=== PATIENT | male | born 1955 | race Caucasian/White ===

== ENCOUNTER 2020-03-26 14:23 | Inpatient (IN) | payer MEDICARE, MEDICAID ==
--- NOTE | 2020-03-26 15:27 | ED ---
Psych HPI - General Chief Complaint: Psychiatric Symptoms Stated Complaint: Mental Health Time Seen by Provider: 03/26/20 14:42 Source: patient Mode of arrival: ambulatory - History of Present Illness Initial Comments: this is a 62-year-old male with no prior history of depression who states she's been feeling depressed since his fiance on January 25 of this year apparently they had an ongoing relationship for 40 years. He has had thoughts of wanting to and suicidal thoughts but no particular plan. He denies any drugs or alcohol no fevers chills nausea vomiting sweats no other complaints of any medical issues. He is here seeking help at the behest of multiple family members and friends Complaint: suicidal ideation, feels depressed - Related Data Home Medications Medication Instructions Recorded Confirmed Insulin Glargine,Hum.rec.anlog 30 - 50 unit SQ HS 03/26/20 03/26/20 [Lantus Solostar] Omeprazole 20 mg PO DAILY 03/26/20 03/26/20 metFORMIN HCL [Glucophage] 1,000 mg PO BID 03/26/20 03/26/20 traMADol HCL 50 mg PO BID 03/26/20 03/26/20 Allergies Allergy/AdvReac Type Severity Reaction Status Date / Time No Known Allergies Allergy Verified 03/26/20 16:02 Review of Systems ROS Statement: Those systems with pertinent positive or pertinent negative responses have been documented in the HPI. ROS Other: All systems not noted in ROS Statement are negative. Past Medical History Past Medical History: No Reported History Past Surgical History: No Surgical Hx Reported Smoking Status: Never smoker Past Alcohol Use History: None Reported Past Drug Use History: None Reported General Exam - General Exam Comments Initial Comments: this is a well-developed well-nourished awake alert oriented 3 male he is tearful during the interview Limitations: no limitations General appearance: alert Head exam: Present: atraumatic, normocephalic, normal inspection Eye exam: Present: normal appearance, PERRL, EOMI. Absent: scleral icterus, conjunctival injection, periorbital swelling ENT exam: Present: normal exam, mucous membranes moist Neck exam: Present: normal inspection. Absent: tenderness, meningismus, lymphadenopathy Respiratory exam: Present: normal lung sounds bilaterally. Absent: respiratory distress, wheezes, rales, rhonchi, stridor Cardiovascular Exam: Present: normal rhythm, tachycardia, normal heart sounds. Absent: systolic murmur, diastolic murmur, rubs, gallop, clicks GI/Abdominal exam: Present: soft, normal bowel sounds. Absent: distended, tenderness, guarding, rebound, rigid Extremities exam: Present: normal inspection, full ROM, normal capillary refill. Absent: tenderness, pedal edema, joint swelling, calf tenderness Back exam: Present: normal inspection Neurological exam: Present: alert, oriented X3, CN II-XII intact Psychiatric exam: Present: depressed, suicidal ideation Skin exam: Present: warm, dry, intact, normal color. Absent: rash Course Vital Signs 03/26/20 03/26/20 14:35 19:56 Temperature 98.3 F 97.9 F Pulse Rate 108 H 100 Respiratory 18 18 Rate Blood Pressure 149/101 118/95 O2 Sat by Pulse 98 96 Oximetry Medical Decision Making - Medical Decision Making the patient was evaluated by the psychiatric service and found to be a risk to himself. He will be admitted he did require a petition and certification which I did call to certification. He will be admitted for inpatient treatment. Disposition Clinical Impression: Depression, Suicidal ideation Disposition: TRANSFER TO PSYCH HOSP/UNIT Condition: Fair
[2020-03-26] MEDS ORDERED: traMADol 50 MG TAB PO PRN (19:45)
[2020-03-26] MEDS ORDERED: ZIPRASIDONE 20 MG VIAL IM PRN (19:49)
[2020-03-26] MEDS ORDERED: ACETAMINOPHEN TAB 325 MG TAB PO PRN (19:49)
[2020-03-26] MEDS ORDERED: LORazepam 1 MG TAB PO PRN (19:49)
[2020-03-26] MEDS ORDERED: MAGNESIUM HYDROXIDE 2,400 MG/10 ML CUP PO PRN (19:49)
[2020-03-26] MEDS ORDERED: MAG HYDROX/AL HYDROX/SIMETH 30 ML CUP PO PRN (19:49)
[2020-03-26] MEDS ORDERED: LORazepam 2 MG/ML INJ IM PRN (19:53)
[2020-03-26] MEDS ORDERED: NON FORMULARY DRUG (Insulin Glargine,Hum.Rec.Anlog [Lantus Solostar] 100 UNIT/ML Insuln.Pe SQ SCH (21:00)
[2020-03-26] MEDS ORDERED: metFORMIN 500 MG TAB PO SCH (21:00)
[2020-03-26] MEDS: INSULIN ASPART (NovoLOG) 100 UNIT/ML VIAL SQ SCH (21:17)
[2020-03-26 21:21] LABS: Glucose,Whole Blood 398 mg/dL (75-99)
[2020-03-26] MEDS ORDERED: INSULIN DETEMIR (LEVEMIR) 100 UNIT/ML SYR SQ SCH (22:00)
[2020-03-27 07:23] LABS: Basophils # (A) 0.1 k/uL (0-0.2); Basophils % (A) 1 %; Eosinophils # (A) 0.2 k/uL (0-0.7); Eosinophils % (A) 2 %; HCT 50.3 % (39.0-53.0); HGB 16.5 gm/dL (13.0-17.5); Lymphocytes % (A) 27 %; MCH 30.3 pg (25.0-35.0); MCHC 32.9 g/dL (31.0-37.0); MCV 92.1 fL (80.0-100.0); Mean Platelet Volume 7.5; Monocytes # (A) 0.4 k/uL (0-1.0); Monocytes % (A) 6 %; Neutrophils # (A) 4.6 k/uL (1.3-7.7); Neutrophils % (A) 62 %; Platelet Count 219 k/uL (150-450); RBC 5.46 m/uL (4.30-5.90); RDW 13.2 % (11.5-15.5); WBC 7.3 k/uL (3.8-10.6)
[2020-03-27 07:35] LABS: ALT 15 U/L (4-49); AST 23 U/L (17-59); African American GFR (CKD) >90 (>60 ml/min/1.73 sqM); Albumin 4.5 g/dL (3.5-5.0); Alkaline Phosphatase 93 U/L (38-126); Anion Gap 10 mmol/L; Blood Urea Nitrogen 18 mg/dL (9-20); Calcium 9.8 mg/dL (8.4-10.2); Carbon Dioxide 26 mmol/L (22-30); Chloride 100 mmol/L (98-107); Cholesterol 283 mg/dL (<200); Glucose 366 mg/dL (74-99); HDL Cholesterol 43 mg/dL (40-60); LDL Cholesterol,Calculated 173 mg/dL (0-99); Non-African American GFR(CKD) >90 (>60 ml/min/1.73 sqM); Potassium 4.5 mmol/L (3.5-5.1); Sodium 136 mmol/L (137-145); Total Bilirubin 0.9 mg/dL (0.2-1.3); Total Protein 7.7 g/dL (6.3-8.2); Triglycerides 336 mg/dL (<150)
[2020-03-27] MEDS: INSULIN ASPART (NovoLOG) 100 UNIT/ML VIAL SQ SCH ×4 (08:10→21:05)
[2020-03-27] MEDS: PANTOPRAZOLE 40 MG TABLET PO SCH (08:10)
[2020-03-27 08:18] LABS: Glucose,Whole Blood 388 mg/dL (75-99)
--- NOTE | 2020-03-27 11:30 | P.HP ---
Psychiatric H&P - . H&P Date: 03/27/20 History & Physical: Allergies Allergy/AdvReac Type Severity Reaction Status Date / Time No Known Allergies Allergy Verified 03/26/20 20:58 Vital Signs Temp 97.9 F 03/27/20 01:39 Pulse 86 03/27/20 01:39 Resp 15 03/27/20 01:39 BP 141/93 03/27/20 01:39 Pulse Ox 96 03/26/20 20:50 Intake & Output 03/26/20 03/27/20 03/27/20 18:59 06:59 18:59 Weight 97.976 kg 98.43 kg Laboratory Last Values WBC 7.3 k/uL (3.8-10.6) 03/27/20 06:55 RBC 5.46 m/uL (4.30-5.90) 03/27/20 06:55 Hgb 16.5 gm/dL (13.0-17.5) 03/27/20 06:55 Hct 50.3 % (39.0-53.0) 03/27/20 06:55 MCV 92.1 fL (80.0-100.0) 03/27/20 06:55 MCH 30.3 pg (25.0-35.0) 03/27/20 06:55 MCHC 32.9 g/dL (31.0-37.0) 03/27/20 06:55 RDW 13.2 % (11.5-15.5) 03/27/20 06:55 Plt Count 219 k/uL (150-450) 03/27/20 06:55 Neutrophils % 62 % 03/27/20 06:55 Lymphocytes % 27 % 03/27/20 06:55 Monocytes % 6 % 03/27/20 06:55 Eosinophils % 2 % 03/27/20 06:55 Basophils % 1 % 03/27/20 06:55 Neutrophils # 4.6 k/uL (1.3-7.7) 03/27/20 06:55 Lymphocytes # 2.0 k/uL (1.0-4.8) 03/27/20 06:55 Monocytes # 0.4 k/uL (0-1.0) 03/27/20 06:55 Eosinophils # 0.2 k/uL (0-0.7) 03/27/20 06:55 Basophils # 0.1 k/uL (0-0.2) 03/27/20 06:55 Sodium 136 mmol/L (137-145) L 03/27/20 06:55 Potassium 4.5 mmol/L (3.5-5.1) 03/27/20 06:55 Chloride 100 mmol/L (98-107) 03/27/20 06:55 Carbon Dioxide 26 mmol/L (22-30) 03/27/20 06:55 Anion Gap 10 mmol/L 03/27/20 06:55 BUN 18 mg/dL (9-20) 03/27/20 06:55 Creatinine 0.68 mg/dL (0.66-1.25) 03/27/20 06:55 Est GFR (CKD-EPI)AfAm >90 (>60 ml/min/1.73 sqM) 03/27/20 06:55 Est GFR (CKD-EPI)NonAf >90 (>60 ml/min/1.73 sqM) 03/27/20 06:55 Glucose 366 mg/dL (74-99) H 03/27/20 06:55 POC Glucose (mg/dL) 388 mg/dL (75-99) H 03/27/20 08:05 POC Glu Immigration Manager ID Aly Houser 03/27/20 08:05 Calcium 9.8 mg/dL (8.4-10.2) 03/27/20 06:55 Total Bilirubin 0.9 mg/dL (0.2-1.3) 03/27/20 06:55 AST 23 U/L (17-59) 03/27/20 06:55 ALT 15 U/L (4-49) 03/27/20 06:55 Alkaline Phosphatase 93 U/L (38-126) 03/27/20 06:55 Total Protein 7.7 g/dL (6.3-8.2) 03/27/20 06:55 Albumin 4.5 g/dL (3.5-5.0) 03/27/20 06:55 Triglycerides 336 mg/dL (<150) H 03/27/20 06:55 Cholesterol 283 mg/dL (<200) H 03/27/20 06:55 LDL Cholesterol, Calc 173 mg/dL (0-99) H 03/27/20 06:55 HDL Cholesterol 43 mg/dL (40-60) 03/27/20 06:55 TSH 1.950 mIU/L (0.465-4.680) 03/27/20 06:55 03/27/20 11:22 IDENTIFYING DATA: Patient is a 64-year-old male who currently lives with his brother in a house has 5 kids 8 grandkids and collects Social Security and is . HPI: Patient presented to the hospital who presented to the ER with suicidal thoughts and depression. Patient was brought in by the police and according to ER report and petition patient had increasing depression and suicidal thoughts since his fiance had in early January and was feeling unsafe at home. Patient was admitted involuntarily to the mental health unit today. Patient denied any previous history of psychiatric admissions or being on any psychiatric medications in the past. He states that he was having "weird thoughts" staying at home alone and claims that he mentioned to a [employer] worker who called him on his phone while he was visiting his sister in the area to ask him about his symptoms and patient states that he mentioned thoughts of suicide and claims that "she called the grinder set up operator external on me and brought me to the hospital". He states that "I was joking around" and minimized most of his symptoms and was fairly guarded/evasive. He was tearful at times and perseverating on discharge. Patient had poor insight and judgment. He minimized his depression and claims that "I just play with my cats and I'm okay". He claims that he has been dealing with suicidal thoughts and grief over his fiance who they have been together 40 years. He states that he has been feeling irritable and anxious at times. He denied any access to guns at home. He states that his sleep has been "on and off" mentions that he has decrease in concentration and appetite. He states that he has been crying a lot at home. He claims that his fianc overdosed on Tylenol and he wasn't allowed to see her and states that "I've had to deal with that for so long now". He endorsed guilt. Patient denies any suicidal or homicidal ideations intent or plan. At this time patient denies any auditory or visual hallucinations. Patient denies any flight of ideas racing thoughts and increased in goal directed behavior. Patient admits to using no recreational drugs or cigarettes or alcohol. PAST PSYCHIATRIC HISTORY: Patient states that he does not have any psychiatric history. Patient denies being on any psychiatric medications. Patient denies any previous psychiatric hospitalizations. Patient denies any psychiatric outpatient follow-up. Patient denies any history of suicide attempts in the past. PMH: Diabetes, GERD, lower back pain ALLERGIES: as per EMR CHEMICAL DEPENDENCY HISTORY: as per HPI FAMILY PSYCHIATRIC/SUBSTANCE USE HISTORY: denies SOCIAL HISTORY: Patient was born and raised in to [place] [facility] and currently lives in [place] with his brother in a house. He states that he has 5 kids and 8 grandchildren. He states that he collects Social Security at this time. Patient is . 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 He denies any legal or history. MENTAL STATUS EXAM: General Appearance: Patient appears to be older than stated age is alert, guarded/evasive, argumentative. Patient appears to have poor hygiene and grooming. Behavior: Patient is seated without any agitated behavior. Argumentative and guarded. Speech: Patient's speech is fluent and nonpressured. Mood/Affect: Patient reports their mood is [depressed and anxious], affect is congruent and tearful at times Suicidality/Homicidality: Patient denies having any homicidal ideation intent or plan. [Denies any suicidal ideations intent or plan] Perceptions: Patient denies any visual hallucinations [and denies any auditory hallucinations] Though content/process: There is no evidence of any delusional thought content and thought process is linear and goal-directed. Perseverates on discharge. Minimizing his symptoms and rationalizing. Significant denial. Memory and concentration: AOX3, grossly intact for the purposes of this session. Can spell "WORLD" backwards Judgment and insight: [poor] STRENGTHS/WEAKNESSES: strength is that patient is [resilient]. Weakness is that patient [has poor judgment and insight] INTELLECT: [average] IMPRESSIONS: Major depressive disorder, without psychotic features PLAN: -Patient is admitted under [voluntary] status to MHU for stabilization of psychiatric symptoms and safety. Patient has signed [adult voluntary form and] medication consent and is placed in patient's chart. -Medications : Will start patient on Cymbalta 30 mg daily for mood/anxiety/pain. Started on melatonin 5 mg daily at bedtime for insomnia. -Ativan [and Geodon] PRN for agitation/aggression -Patient was informed of the risks, benefits and side effects of the medication and patient verbally consented to taking the medications. Patient signed med consent form and was placed in chart. -Internal Medicine consult to perform medical evaluation and physical. -NRT - not needed as patient does not smoke. -SW on board for discharge planning. Encourage patient to participate in groups to work on coping skills. Patient will need to have a safe discharge plan prior to being released from the hospital. 03/27/20 11:22
[2020-03-27] MEDS: DULoxetine HCL 30 MG CAPSULE.DR PO SCH (12:04)
[2020-03-27 13:11] LABS: Glucose,Whole Blood 378 mg/dL (75-99)
[2020-03-27] MEDS ORDERED: INSULIN DETEMIR (LEVEMIR) 100 UNIT/ML SYR SQ STA (13:52)
[2020-03-27 17:40] LABS: Glucose,Whole Blood 322 mg/dL (75-99)
[2020-03-27 17:47] LABS: Hemoglobin A1C 13.9 % (4.0-6.0)
[2020-03-27 19:57] LABS: Glucose,Whole Blood 312 mg/dL (75-99)
[2020-03-27] MEDS: MELATONIN 5 MG TABLET PO SCH (21:04)
[2020-03-27] MEDS: INSULIN DETEMIR (LEVEMIR) 100 UNIT/ML SYR SQ SCH (21:05)
--- NOTE | 2020-03-28 00:18 | P.MDCNMH ---
History of Present Illness H&P Date: 03/27/20 Chief Complaint: hyperglycemia 64 year old male with DM on insulin patient comes in due to overwhelming depression with suicidal ideation , he denies any mental health problems in the past, however since his fiance's in january , he has not gotten over it , and feels very depressed and suicidal at times, but denies any suicide plans. patient denies any medical concerns otherwise. however, his blood sugar is running high, he declined insulin last night. otherwise , he denies any fever, chills, chest pain , trouble breathing, GI symptoms, URI. Review of Systems Pertinent positives as noted in HPI. All other systems were reviewed and are negative Past Medical History Past Medical History: No Reported History History of Any Multi-Drug Resistant Organisms: None Reported Past Surgical History: No Surgical Hx Reported Smoking Status: Never smoker Past Alcohol Use History: None Reported Past Drug Use History: None Reported Medications and Allergies Home Medications Medication Instructions Recorded Confirmed Type Insulin Glargine,Hum.rec.anlog 30 - 50 unit SQ HS 03/26/20 03/26/20 History [Lantus Solostar] Omeprazole 20 mg PO DAILY 03/26/20 03/26/20 History metFORMIN HCL [Glucophage] 1,000 mg PO BID 03/26/20 03/26/20 History traMADol HCL 50 mg PO BID 03/26/20 03/26/20 History Allergies Allergy/AdvReac Type Severity Reaction Status Date / Time No Known Allergies Allergy Verified 03/26/20 20:58 Physical Exam Vitals: Vital Signs Temp Pulse Resp BP 03/27/20 17:49 98.3 F 03/27/20 12:15 98.9 F 03/27/20 01:39 97.9 F 86 15 141/93 Constitutional: No acute distress, conversant, pleasant Eyes: Anicteric sclerae, moist conjunctiva, Pupils equal round reactive to light ENMT: NC/AT Oropharynx clear, no erythema, or exudates Neck: Supple, FROM, no masses, or JVD No carotid bruits No thyromegaly Lungs: Clear to auscultation Clear to percussion Normal respiratory effort, no accessory muscle use Cardiovascular: Heart regular in rate and rhythm, No murmurs, gallops, or rubs No peripheral edema Abdominal: Soft Nontender, no guarding, rebound or rigidity Abdomen moving with respiration Normoactive bowel sounds No hepatomegaly, No splenomegaly No palpable mass No abdominal wall hernia noted Skin: Normal temperature, tone, texture, turgor No induration No subcutaneous nodules No rash, lesions No ulcers Extremities: No digital cyanosis No clubbing Pedal pulses intact and symmetrical Radial pulses intact and symmetrical No calf tenderness Psychiatric: Alert and oriented to person, place and time depressed affect fair judgement Neuro Muscles Strength 5/5 in all 4 extremities Sensation to light touch grossly present throughout Cranial nerves II-XII grossly intact No focal sensory deficits Lymphatics: no palpable cervical or supraclavicular , or inguinal lymph nodes Cranial Nerve Examination - Cranial Nerves Cranial Nerve II- Optic: Intact Cranial Nerve III- Oculomotor: Intact Cranial Nerve IV- Trochlear: Intact Cranial Nerve V- Trigeminal: Intact Cranial Nerve - Abducens: Intact Cranial Nerve VII- Facial: Intact Cranial Nerve VIII- Auditory: Intact Cranial Nerve IX- Glossopharyngeal: Intact Cranial Nerve X- Vagus: Intact Cranial Nerve XI- Accessory: Intact Cranial Nerve XII- Hypoglossal: Intact Results CBC & Chem 7: 03/27/20 06:55 03/27/20 06:55 Labs: Abnormal Lab Results - Last 24 Hours (Table) 03/27/20 03/27/20 03/27/20 Range/Units 06:55 06:55 08:05 Sodium 136 L (137-145) mmol/L Glucose 366 H (74-99) mg/dL POC Glucose (mg/dL) 388 H (75-99) mg/dL Hemoglobin A1c 13.9 H (4.0-6.0) % Triglycerides 336 H (<150) mg/dL Cholesterol 283 H (<200) mg/dL LDL Cholesterol, Calc 173 H (0-99) mg/dL 03/27/20 03/27/20 03/27/20 Range/Units 13:00 17:38 19:55 Sodium (137-145) mmol/L Glucose (74-99) mg/dL POC Glucose (mg/dL) 378 H 322 H 312 H (75-99) mg/dL Hemoglobin A1c (4.0-6.0) % Triglycerides (<150) mg/dL Cholesterol (<200) mg/dL LDL Cholesterol, Calc (0-99) mg/dL Assessment and Plan Assessment: depression , suicidal ideation management per psych DM with hyperglycemia long acting insulin insulin sliding scale diabetic diet hyperlipidemia start statin Thank you for allowing us to participate in the care of this patient. We will follow peripherally. Do not hesitate to contact us with questions. Someone can be reached from the [facility] hospitalist group at all hours of the day at [phone].
[2020-03-28 07:44] LABS: Glucose,Whole Blood 140 mg/dL (75-99)
[2020-03-28] MEDS: INSULIN ASPART (NovoLOG) 100 UNIT/ML VIAL SQ SCH ×4 (08:01→20:09)
[2020-03-28] MEDS: DULoxetine HCL 30 MG CAPSULE.DR PO SCH (08:02)
[2020-03-28] MEDS: PANTOPRAZOLE 40 MG TABLET PO SCH (08:02)
[2020-03-28 12:40] LABS: Glucose,Whole Blood 272 mg/dL (75-99)
--- NOTE | 2020-03-28 13:24 | P.PN ---
Progress Note - Text Progress Note Date: 03/28/20 Interim history: I reviewed the medical record, interviewed the patient and discussed her treatment and treatment plan during team meeting. Patient was in cortes and agreed to follow me to office , he has been asking for discharge "I am missing my cats",talked about his GF who 01/2020 from u nintentionally OD of Tylenol ,he stated that he did need to talk to someone about her loss but "ALAYNA HEREDIA THOUGHT THAT I WAS SUICIDAL" ,stated that he does feel "MISERABLE"staying here "BECAUSE OF MY BABY "he is talking about his cats ,denies any hopeless or helpless feeling denies any suicidal or homicidal ideation,has been compliant with medications and denies any side-effect SLEPT:5 hours ,participating in groups ACCORDING TO GIOVANNA NOTE:((Met with pt to discuss dc plans further. He states he would like to return home to [place] as he has cats and friends down there. T/C to sister to discuss further. She states "we will try it until he is able to come up here." She confirmed he won't be alone, as his brother lives with him in [place]. She confirmed there are no guns in the home adding "I took care of that a long time ago". Tx team meeting held case discussed. Updated on the above. Will f/u as appropriate.)) [ End ] MENTAL STATUS EXAM: General Appearance: Patient appears to be stated age is alert, directable, and attempts to cooperate. Patient appears to have fair hygiene and grooming. Behavior: Patient is seated without any agitated behavior. Patient is appr opriately tearful. Speech: Patient's speech is fluent and nonpressured. Mood/Affect: Patient reports their mood is depressed, affect is congruent, tearful and constricted. Suicidality/Homicidality: Patient denies having any homicidal ideation intent or plan. Denies any suicidal ideations intent or plan Perceptions: Patient denies any visual hallucinations and denies any auditory hallucinations Though content/process: There is no evidence of any delusional thought content and thought process is linear and goal-directed. Memory and concentration: AOX3, grossly intact for the purposes of this session. Judgment and insight:fair ASSESSMENT:Major depression ,versus Adjustment disorder with depressed mood Plan: -Patient continues to meet criteria for inpatient psychiatric admission for symptom stabilization and safety. . Continue Cymbalta for mood ., Continue Continue Geodon 20 mg IM twice a day when necessary for agitation or aggression. Evaluate clinical status response to treatment on a daily basis. Encourage participation in therapeutic groups and activities.
[2020-03-28 16:12] VITALS: BMI 28.6
[2020-03-28 17:43] LABS: Glucose,Whole Blood 236 mg/dL (75-99)
[2020-03-28 19:58] LABS: Glucose,Whole Blood 272 mg/dL (75-99)
[2020-03-28] MEDS: INSULIN DETEMIR (LEVEMIR) 100 UNIT/ML SYR SQ SCH (20:09)
[2020-03-28] MEDS: MELATONIN 5 MG TABLET PO SCH (20:11)
[2020-03-28] MEDS ORDERED: ATORVASTATIN 20 MG TAB PO SCH (21:00)
[2020-03-29 06:43] VITALS: BP 134/85; PULSE 78; RESP 16; TEMP 98.1
[2020-03-29 07:46] LABS: Glucose,Whole Blood 124 mg/dL (75-99)
[2020-03-29] MEDS: INSULIN ASPART (NovoLOG) 100 UNIT/ML VIAL SQ SCH (07:47)
[2020-03-29] MEDS: PANTOPRAZOLE 40 MG TABLET PO SCH (09:17)
[2020-03-29] MEDS: DULoxetine HCL 30 MG CAPSULE.DR PO SCH (09:17)
--- NOTE | 2020-03-29 17:01 | DS ---
DISCHARGE SUMMARY DATE OF ADMISSION: 03/26/2020 DATE OF DISCHARGE: 03/29/2020 OR DIRECTOR: Dr. Tawana Villarreal for history and physical and medical management. DISCHARGE DIAGNOSES: 1. Major depression disorder without psychotic features. 2. Acute grief reaction. 3. Hyperlipidemia. 4. Diabetes. 5. Hypertension. HISTORY: The patient was admitted under Dr. Barajas's care. Please refer to his dictation on 03/27/2020. The patient is a 64-year-old male who currently lives with his brother in a house and he is collecting social security disability. He presented to the hospital with suicidal thoughts and depression. The patient was brought by the police after a [employer] nurse did contact the police. According to the petition, the patient has been severely depressed with suicidal ideation since his fiancee in early January 2020. Initially he was admitted involuntarily to the mental health unit. However, he did sign voluntary admission. He denied being in outpatient or inpatient prior to this. He stated that he did have "weird thinking," staying at home alone, as his brother was working. He mentioned this to the [employer] worker, who called the police. The patient said, "I just told her what was on my mind, but I would never do this." At the time of admission, he stated that he has his cat and he has been dealing with grief over his fiancee, as they had been together for 40 years. For complete evaluation, please refer to Dr. Barajas's dictation. HOSPITAL COURSE: The patient was under Dr. Barajas's care. He did start him on Cymbalta 30 mg daily and melatonin at bedtime for sleep. The patient did tolerate medication without having any side effects. He was focusing about being able to be discharged and seek outpatient, and more than once he denied having any suicidal thoughts. He stated that coming here did change his thinking and he did realize that he will never act on this, especially for his 7 grandchildren and for his cat. He was participating in group therapy and our manager social services did contact the patient's sister, who stated that the patient will return back home to [place], as he has his cat over there, and also she stated that his brother is staying with him. His sister confirmed there is no gun in the house. She stated that the patient has a very good support system, as the sister has been involved in his life for years. During his stay here, his blood showed that he has high cholesterol, and he was started on Lipitor by Internal Medicine. We did check his blood glucose; usually it runs between 140 and 236, and the patient stated that he used to have Lantus insulin, but here he has been getting NovoLog. We did continue him on his omeprazole, metformin and tramadol for chronic pain. The patient was active in the milieu and he has been active in every group, and the patient seems to have much better insight about his condition and he talked about grief and loss; but at the same time, he stated that he has been having a lot of good memories about his fiancee. More than once he denied any suicidal ideation. Throughout the course of this hospitalization, the patient improved a lot. He denied any paranoia. He denied any delusional thinking. He denied any feeling of hopelessness or helplessness. He denied having any substance use disorder. The patient was counseled on the medication and the need for regular compliance with medication, and also the compliance with outpatient appointment with his primary care physician regarding his hyperlipidemia and diabetes. MENTAL STATUS EXAMINATION: At the time of discharge, the patient appears much older than stated age, casually dressed, fair grooming, cooperative, smiling. There is no acute distress. He was able to sit calmly without any agitation. Speech is coherent and goal-directed. He stated mood is "better." His affect is appropriate to thought content. He denied having any suicidal or homicidal ideation, intent or plan. He denied any auditory or visual hallucinations. There is no evidence of delusional thinking. His thought process is linear and goal-directed and more future-oriented. He is alert, oriented x3. Memory is grossly intact. Insight and judgment are improving. PLAN: The patient will be discharged today. He will be living in his house with his brother. The patient will be referred to [facility]. The patient has to follow up with his primary care physician regarding his hyperlipidemia and diabetes. I continued him on his medication, Cymbalta 30 mg daily for mood and depression and melatonin at bedtime for sleep. The patient was counseled on the need for medication compliance and appropriate followup with mental health and also with his primary care physician. The patient was counseled about medication side effects and to follow up with his diet regarding his diabetes. The patient was instructed to return to the hospital or seek immediate care if his psychiatric or medical symptoms do recur. MMODL / IJN: [id number] /
== END 2020-03-29 12:32 | disposition home or self-care (01) | DRG 881 ==
LOC: EC 14:23 → 3MHU 19:25
PROVIDERS: ADMIT Psychiatry & Neurology Psychiatry; ATTEND Psychiatry & Neurology Psychiatry
DX: F32.9 Major depressive disorder, single episode, unspecified (principal); R45.851 Suicidal ideations; E11.65 Type 2 diabetes mellitus with hyperglycemia; F43.20 Adjustment disorder, unspecified; K21.9 Gastro-esophageal reflux disease without esophagitis; E78.5 Hyperlipidemia, unspecified; I10 Essential (primary) hypertension; G89.29 Other chronic pain; M54.5 Low back pain; Z79.4 Long term (current) use of insulin; Z79.899 Other long term (current) drug therapy
CPT/HCPCS: 80053; 80061; 82075; 83036; 84443; 85025; 99285

== ENCOUNTER 2024-11-03 09:18 | Inpatient (IN) | payer MEDICAID, MEDICARE ==
--- NOTE | 2024-11-03 10:07 | ED ---
Extremity Problem HPI - General Chief complaint: Extremity Problem,Nontraumatic Stated complaint: Right toe injury Time Seen by Provider: 11/03/24 09:36 Source: patient, RN notes reviewed Mode of arrival: ambulatory Limitations: no limitations - History of Present Illness Initial comments: This is a 69-year-old male who presents to the emergency department with concerns of an infection to his right great toe. States that he has noticed discoloration to the top of the toe and swelling with drainage for the last couple of days. He has been trying to soak and clean the toe and states that it is improving, however he is concerned that it may be infected. Denies any pain associated with this. He does have diabetes. Denies any history of peripheral neuropathy. Denies any fevers or chills. - Related Data Home Medications Medication Instructions Recorded Confirmed Insulin Glargine,Hum.rec.anlog 55 unit SQ HS 03/26/20 11/03/24 [Lantus Solostar Pen] Atorvastatin [Lipitor] 40 mg PO DAILY 11/03/24 11/03/24 Insulin Aspart [NovoLOG Flexpen] 12 units SQ TID 11/03/24 11/03/24 Omeprazole 40 mg PO AC-BRKFST 11/03/24 11/03/24 lisinopriL [Zestril] 10 mg PO DAILY 11/03/24 11/03/24 metFORMIN HCL 1,000 mg PO BID 11/03/24 11/03/24 Allergies Allergy/AdvReac Type Severity Reaction Status Date / Time No Known Allergies Allergy Verified 11/03/24 14:38 Review of Systems ROS Statement: Those systems with pertinent positive or pertinent negative responses have been documented in the HPI. ROS Other: All systems not noted in ROS Statement are negative. Past Medical History Past Medical History: Diabetes Mellitus History of Any Multi-Drug Resistant Organisms: None Reported Past Surgical History: No Surgical Hx Reported Past Psychological History: No Psychological Hx Reported Smoking Status: Never smoker Past Alcohol Use History: None Reported Past Drug Use History: None Reported General Exam Limitations: no limitations General appearance: alert, in no apparent distress Head exam: Present: atraumatic, normocephalic, normal inspection Respiratory exam: Present: normal lung sounds bilaterally. Absent: respiratory distress, wheezes, rales, rhonchi, stridor Cardiovascular Exam: Present: regular rate, normal rhythm Extremities exam: Present: other (Open wound with necrotic tissue to the top of the toe. No active drainage. No tenderness. Full range of motion) Neurological exam: Present: alert, oriented X3, CN II-XII intact Psychiatric exam: Present: normal affect, normal mood Course Vital Signs 11/03/24 11/03/24 09:26 12:49 Temperature 98.2 F Pulse Rate 119 H 100 Respiratory 20 17 Rate Blood Pressure 163/102 156/84 O2 Sat by Pulse 99 96 Oximetry Medical Decision Making - Medical Decision Making This is a 69-year-old male who presents to the emergency department for concerns of a toe infection. Was pt. sent in by a medical professional or institution? @ -No Did you speak to anyone other than the patient for history? @ -No Did you review nursing and triage notes? @ -Yes, and I agree, it is accurate with regards to the patient's symptoms. Were old charts reviewed? @ -No Differential Diagnosis? @ -Differential Musculoskeletal Muscular strain, contusion, ligament sprain, fracture, arthritis, septic arthritis, bursitis, cellulitis, muscle spasm, nerve compression, DVT, arterial occlusion, herpes zoster, electrolyte abnormality, tumor.... This is not meant to be in all inclusive list EKG interpreted by me (3pts min.)? @ -Not obtained X-rays interpreted by me (1pt min.)? @ -X-ray of the right great toe obtained. My interpretation identifies osseous erosion of the distal phalanx. CT interpreted by me (1pt min.)? @ -Not obtained U/S interpreted by me (1pt. min.)? @ -Not obtained What testing was considered but not performed? (CT, X-rays, U/S, labs)? Why? @ -None What meds were considered but not given? Why? @ -None Did you discuss the management of the patient with other professionals? @ -Yes, Dr. Lyon, who accepts the patient for admission. Did you reconcile home meds? @ -Yes Was smoking cessation discussed for >3mins.? @ -No Was critical care preformed (if so, how long)? @ -No Were there social determinants of health that impacted care today? How? (Homelessness, low income, unemployed, alcoholism, drug addiction, transp ortation, low edu. Level, literacy, decrease access to med. care, skilled nursing, rehab)? @ -No Was there de-escalation of care discussed even if they declined? (Discuss DNR or withdrawal of care, Hospice)? @ -No What co-morbidities impacted this encounter? (DM, HTN, Smoking, COPD, CAD, Cancer, CVA, Hep., AIDS, mental health diagnosis, sleep apnea, morbid obesity)? @ -None Was patient admitted / discharged? @ -Admitted. Lab work demonstrates a mildly elevated CRP of 1.7. He is also hyperglycemic with a glucose of 486. X-ray of the right great toe demonstrates a soft tissue wound with loss of the cortical margin concerning for osteomyelitis. Blood culture obtained along with aerobic and anaerobic wound cultures. He was started on vancomycin and cefepime. Patient admitted to medicine for osteomyelitis of the right great toe. Consult placed for infectious disease and vascular surgery. Case discussed with ED attending Dr. Reese. Undiagnosed new problem with uncertain prognosis? @ -None Drug Therapy requiring intensive monitoring for toxicity (Heparin, Nitro, Insulin, Cardizem)? @ -None Were any procedures done? @ -None Diagnosis/symptom? @ -Osteomyelitis of right great toe Acute, or Chronic, or Acute on Chronic? @ -Acute Uncomplicated (without systemic symptoms) or Complicated (systemic symptoms)? @ -Uncomplicated Side effects of treatment? @ -None Exacerbation, Progression, or Severe Exacerbation] @ -Not applicable Poses a threat to life or bodily function? @ -Yes, can lead to septic shock and - Lab Data Result diagrams: 11/03/24 10:36 11/03/24 10:36 Lab Results 11/03/24 11/03/24 11/03/24 Range/Units 10:36 10:36 10:36 WBC 8.48 (4.50-10.00) 10*3/uL RBC 4.24 L (4.40-5.60) 10*6/uL Hgb 13.0 (13.0-17.0) g/dL Hct 37.3 L (39.6-50.0) % MCV 88.0 (80.0-97.0) fL MCH 30.7 (27.0-32.0) pg MCHC 34.9 (32.0-37.0) g/dL Plt Count 181 (140-440) 10*3/uL MPV 10.0 (9.5-12.2) fL Immature Gran % (Auto) 0.2 % Neutrophils % 74.3 % Lymphocytes % 16.3 % Monocytes % 7.4 % Eosinophils % 1.1 % Basophils % 0.7 % Immature Gran # 0.02 (0.00-0.04) 10*3/uL Neutrophils # 6.30 (1.80-7.70) 10*3/uL Lymphocytes # 1.38 (0.90-5.00) 10*3/uL Monocytes # 0.63 (0.20-1.00) 10*3/uL Eosinophils # 0.09 (0.04-0.35) 10*3/uL Basophils # 0.06 (0.00-0.10) 10*3/uL Sodium 134 L (137-145) mmol/L Potassium 4.7 (3.5-5.1) mmol/L Chloride 99 (98-107) mmol/L Carbon Dioxide 21 L (22-30) mmol/L Anion Gap 14 mmol/L BUN 28 H (9-20) mg/dL Creatinine 0.87 (0.66-1.25) mg/dL Est GFR (CKD-EPI)AfAm >90 (>60 ml/min/1.73 sqM) Est GFR (CKD-EPI)NonAf 90 (>60 ml/min/1.73 sqM) Glucose 486 H (74-99) mg/dL Plasma Lactic Acid Lele 1.1 (0.7-2.0) mmol/L Calcium 10.0 (8.4-10.2) mg/dL Phosphorus (2.5-4.5) mg/dL Magnesium (1.6-2.3) mg/dL Total Bilirubin 0.7 (0.2-1.3) mg/dL AST 15 L (17-59) U/L ALT 10 (4-49) U/L Alkaline Phosphatase 96 (38-126) U/L C-Reactive Protein 1.7 H (<1.0) mg/dL Total Protein 7.4 (6.3-8.2) g/dL Albumin 4.3 (3.5-5.0) g/dL Acetone, Qual (Negative) 11/03/24 Range/Units 11:37 WBC (4.50-10.00) 10*3/uL RBC (4.40-5.60) 10*6/uL Hgb (13.0-17.0) g/dL Hct (39.6-50.0) % MCV (80.0-97.0) fL MCH (27.0-32.0) pg MCHC (32.0-37.0) g/dL Plt Count (140-440) 10*3/uL MPV (9.5-12.2) fL Immature Gran % (Auto) % Neutrophils % % Lymphocytes % % Monocytes % % Eosinophils % % Basophils % % Immature Gran # (0.00-0.04) 10*3/uL Neutrophils # (1.80-7.70) 10*3/uL Lymphocytes # (0.90-5.00) 10*3/uL Monocytes # (0.20-1.00) 10*3/uL Eosinophils # (0.04-0.35) 10*3/uL Basophils # (0.00-0.10) 10*3/uL Sodium (137-145) mmol/L Potassium (3.5-5.1) mmol/L Chloride (98-107) mmol/L Carbon Dioxide (22-30) mmol/L Anion Gap mmol/L BUN (9-20) mg/dL Creatinine (0.66-1.25) mg/dL Est GFR (CKD-EPI)AfAm (>60 ml/min/1.73 sqM) Est GFR (CKD-EPI)NonAf (>60 ml/min/1.73 sqM) Glucose (74-99) mg/dL Plasma Lactic Acid Lele (0.7-2.0) mmol/L Calcium (8.4-10.2) mg/dL Phosphorus 4.6 H (2.5-4.5) mg/dL Magnesium 1.8 (1.6-2.3) mg/dL Total Bilirubin (0.2-1.3) mg/dL AST (17-59) U/L ALT (4-49) U/L Alkaline Phosphatase (38-126) U/L C-Reactive Protein (<1.0) mg/dL Total Protein (6.3-8.2) g/dL Albumin (3.5-5.0) g/dL Acetone, Qual Positive (Negative) - Radiology Data Radiology results: report reviewed, image reviewed Disposition Clinical Impression: Osteomyelitis of great toe of right foot Disposition: ADMITTED IP TO THIS HOSP
[2024-11-03 10:50] LABS: Basophils # (A) 0.06 10*3/uL (0.00-0.10); Basophils % (A) 0.7 %; Eosinophils # (A) 0.09 10*3/uL (0.04-0.35); Eosinophils % (A) 1.1 %; HCT 37.3 % (39.6-50.0); Lymphocytes # (A) 1.38 10*3/uL (0.90-5.00); Lymphocytes % (A) 16.3 %; MCH 30.7 pg (27.0-32.0); MCHC 34.9 g/dL (32.0-37.0); Monocytes # (A) 0.63 10*3/uL (0.20-1.00); Monocytes % (A) 7.4 %; Neutrophils % (A) 74.3 %; Platelet Count 181 10*3/uL (140-440); RBC 4.24 10*6/uL (4.40-5.60); RDW 13.7 % (11.5-14.5); WBC 8.48 10*3/uL (4.50-10.00)
[2024-11-03 11:04] LABS: ALT 10 U/L (4-49); AST 15 U/L (17-59); African American GFR (CKD) >90 (>60 ml/min/1.73 sqM); Albumin 4.3 g/dL (3.5-5.0); Alkaline Phosphatase 96 U/L (38-126); Anion Gap 14 mmol/L; Blood Urea Nitrogen 28 mg/dL (9-20); C Reactive Protein 1.7 mg/dL (<1.0); Carbon Dioxide 21 mmol/L (22-30); Chloride 99 mmol/L (98-107); Glucose 486 mg/dL (74-99); Non-African American GFR(CKD) 90 (>60 ml/min/1.73 sqM); Potassium 4.7 mmol/L (3.5-5.1); Sodium 134 mmol/L (137-145); Total Bilirubin 0.7 mg/dL (0.2-1.3); Total Protein 7.4 g/dL (6.3-8.2)
--- NOTE | 2024-11-03 11:29 | XR ---
EXAMINATION TYPE: XR toes RT DATE OF EXAM: 11/03/2024 11:23 AM COMPARISON: None. CLINICAL INDICATION: Male, 69 years old with history of Right great toe infection, pain TECHNIQUE: 3 view(s) obtained. FINDINGS: There is soft tissue injury of the distal great toe. There is erosion of the distal phalanx. Clinical correlation recommended for osteomyelitis. Some soft tissue swelling appears to be present. Hammertoes are present within remaining digits. No acute fractures are otherwise evident. IMPRESSION: 1. Soft tissue wound with loss of the cortical margin of the distal phalanx right great toe. Finding s can be compatible with acute osteomyelitis. Clinical correlation recommended. [facility], , 11/03/2024 11:27 AM
[2024-11-03] MEDS ORDERED: VANCOMYCIN IV PER PHARMACY 1 EACH MISC MISCELLANE PRN (11:36)
[2024-11-03] MEDS ORDERED: ACETAMINOPHEN TAB 325 MG TAB PO PRN (11:45)
[2024-11-03] MEDS ORDERED: NALOXONE 0.4 MG/ML 1 ML VIAL IV PRN (11:45)
[2024-11-03] MEDS ORDERED: MORPHINE SULFATE 4 MG/ML SYRINGE IV PRN (11:45)
[2024-11-03] MEDS ORDERED: ONDANSETRON 4 MG/2 ML VIAL IVP PRN (11:45)
[2024-11-03] MEDS: SODIUM CHLORIDE 0.9% 1,000 ML IV ONE (12:25)
[2024-11-03] MEDS: CEFEPIME 2 GM in SODIUM CHLORIDE 0.9% 100 ML IVPB STA (12:26)
[2024-11-03] MEDS: CEFEPIME 2 GM in SODIUM CHLORIDE 0.9% 100 ML IVPB SCH (12:26)
--- NOTE | 2024-11-03 12:33 | P.HPIM ---
History of Present Illness This is a pleasant 69 years old male with past medical history of multiple medical problems as below, mainly he has history of diabetes mellitus Patient presents because of swelling tenderness and redness of the right great toe for several weeks, patient denies trauma he does not recall how this happened [place] It is not painful but feels cold for him and swollen on the right Patient denies chest pain dyspnea. No specific GI/ symptoms. No headache dizziness weakness numbness. Labs showing unremarkable CBC, BMP, LFTs except for elevated glucose of 486 Show x-ray showing soft tissue wound with loss of the cortical margin of the distal phalanx of the right great toe Review of Systems Review of systems CONSTITUTIONAL: No fever, no malaise, no fatigue. HEENT: No recent visual problems or hearing problems. Denied any sore throat. CARDIOVASCULAR: No orthopnea, PND, no palpitations, no syncope. PULMONARY: No shortness of breath, no cough, no hemoptysis. GASTROINTESTINAL: No diarrhea, no nausea, no vomiting, no abdominal pain. Normoactive bowel sounds. NEUROLOGICAL: No headaches, no weakness, no numbness. HEMATOLOGICAL: Denies any bleeding or petechiae. GENITOURINARY: Denies any burning micturition, frequency, or urgency. MUSCULOSKELETAL/RHEUMATOLOGICAL: Denies any joint pain, swelling, or any muscle pain. ENDOCRINE: Denies any polyuria or polydipsia. Past Medical History Past Medical History: Diabetes Mellitus History of Any Multi-Drug Resistant Organisms: None Reported Past Surgical History: No Surgical Hx Reported Past Psychological History: No Psychological Hx Reported Smoking Status: Never smoker Past Alcohol Use History: None Reported Past Drug Use History: None Reported Medications and Allergies Home Medications Medication Instructions Recorded Confirmed Type Insulin Glargine,Hum.rec.anlog 30 - 50 unit SQ HS 03/26/20 03/26/20 History [Lantus Solostar Pen] Omeprazole 20 mg PO DAILY 03/26/20 03/26/20 History metFORMIN HCL [Glucophage] 1,000 mg PO BID 03/26/20 03/26/20 History traMADol HCL 50 mg PO BID 03/26/20 03/26/20 History Atorvastatin [Lipitor] 20 mg PO HS 30 Days tab 03/29/20 Rx DULoxetine HCL [Cymbalta] 30 mg PO DAILY 30 Days 03/29/20 Rx Melatonin 5 mg PO HS 30 Days tablet 03/29/20 Rx Allergies Allergy/AdvReac Type Severity Reaction Status Date / Time No Known Allergies Allergy Verified 11/03/24 09:29 Physical Exam Vitals: Vital Signs Temp Pulse Resp BP Pulse Ox 11/03/24 09:26 98.2 F 119 H 20 163/102 99 Intake and Output 11/02/24 11/03/24 11/03/24 22:59 06:59 14:59 Other: Weight 104.326 kg GENERAL: The patient is alert and oriented x3, not in any acute distress. Well developed, well nourished. HEENT: Pupils are round and equally reacting to light. EOMI. No scleral icterus. No conjunctival pallor. Normocephalic, atraumatic. No pharyngeal erythema. No thyromegaly. CARDIOVASCULAR: S1 and S2 present. No murmurs, rubs, or gallops. PULMONARY: Chest is clear to auscultation, no wheezing , no crackles. ABDOMEN: Soft, nontender, nondistended, normoactive bowel sounds. No palpable organomegaly. MUSCULOSKELETAL: No joint swelling or deformity. -EXTREMITIES: No cyanosis, clubbing, or pedal edema. Right great toe inflamed red and tender NEUROLOGICAL: Gross neurological examination did not reveal any focal deficits. SKIN: No rashes. no petechiae. Results CBC & Chem 7: 11/03/24 10:36 11/03/24 10:36 Labs: Abnormal Lab Results - Last 24 Hours (Table) 11/03/24 11/03/24 Range/Units 10:36 10:36 RBC 4.24 L (4.40-5.60) 10*6/uL Hct 37.3 L (39.6-50.0) % Sodium 134 L (137-145) mmol/L Carbon Dioxide 21 L (22-30) mmol/L BUN 28 H (9-20) mg/dL Glucose 486 H (74-99) mg/dL AST 15 L (17-59) U/L C-Reactive Protein 1.7 H (<1.0) mg/dL Assessment and Plan Assessment: Right great toe cellulitis and possible osteomyelitis Diabetes mellitus with hyperglycemia Plan: Continue with antibiotic, currently on IV vancomycin and cefepime Vascular surgery team consult Infectious disease team consult Labs and medication were reviewed.. Continue same treatment. Continue with symptomatic treatment. Resume home medication. Monitor labs and vitals. DVT and GI prophylaxis. Further recommendations as per clinical course of the patient DVT prophylaxis: Subcutaneous heparin GI Prophylaxis: Pepcid PT/OT: Pending Prognosis is guarded
[2024-11-03 12:35] LABS: Magnesium 1.8 mg/dL (1.6-2.3); Phosphorus 4.6 mg/dL (2.5-4.5)
[2024-11-03] MEDS ORDERED: INSULIN REGULAR 100 UNIT in SODIUM CHLORIDE 0.9% 100 ML IV SCH (13:30)
[2024-11-03] MEDS: VANCOMYCIN 1,750 MG in SODIUM CHLORIDE 0.9% 500 ML 500 ML IVPB STA (13:59)
[2024-11-03] MEDS: SODIUM CHLORIDE 0.9% 500 ML 500 ML IV ONE (14:01)
[2024-11-03] MEDS: SODIUM CHLORIDE 0.9% 1,000 ML IV SCH ×2 (14:02→14:03)
[2024-11-03] MEDS: INSULIN REGULAR BOLUS (FROM DRIP BAG) IV ONE (14:03)
[2024-11-03 15:47] LABS: Glucose,Whole Blood 380 mg/dL (70-110)
[2024-11-03] MEDS ORDERED: D5-0.45% NACL WITH KCL 20MEQ/L 1,000 ML IV SCH (16:00)
[2024-11-03] MEDS: INSULIN LISPRO (HumaLOG) 100 UNIT/ML 10 mL VL SQ SCH (16:12)
[2024-11-03] MEDS: metFORMIN 500 MG TAB PO SCH (17:55)
[2024-11-03] MEDS ORDERED: CEFEPIME 2 GM in SODIUM CHLORIDE 0.9% 100 ML IVPB SCH (20:00)
[2024-11-03 21:02] LABS: Glucose,Whole Blood 356 mg/dL (70-110)
[2024-11-03] MEDS: INSULIN GLARGINE (LANTUS) 100 UNIT/ML SYR SQ SCH (21:27)
--- NOTE | 2024-11-03 22:38 | P.CONS ---
History of Present Illness - Reason for Consult Consult date: 11/03/24 Right big toe osteomyelitis Requesting physician: Denisse Schmitt - Chief Complaint Right big toe wound swelling and redness x days - History of Present Illness Patient is a 69-year-old male with a past medical history significant for diabetes mellitus presenting to the hospital for evaluation of infection to the right big toe patient mention few days ago when he took off his socks he noticed to having discoloration and swelling to the right great toe area since then the patient has been trying to clean by washing it with Epsom salt and local treatment however he noticed to having increasing swelling redness of the right big toe along with some drainage patient did have diabetic neuropathy denies significant pain to the right big toe area patient denies high-grade fever or any chills and has not been on antibiotics recently with the symptoms the patient was evaluated on presentation to the hospital patient was afebrile no fever have been called subsequently patient was tachycardic but not hypotensive or hypoxic he did have white count of 8.48 creatinine 0.87 electrolytes are normal liver enzymes are normal patient did have a x-ray of the toe soft tissue wound with loss of cortical margin of the distal phalanx right big toe concerning for osteomyelitis patient did have a local cultures obtained which are currently pending patient was started on vancomycin and cefepime infectious disease was consulted for further management of antibiotic therapy Review of Systems Positive point and negatives has been mentioned in the HPI, complete review of systems was performed and all other systems are negative Past Medical History Past Medical History: Diabetes Mellitus History of Any Multi-Drug Resistant Organisms: None Reported Past Surgical History: No Surgical Hx Reported Past Psychological History: No Psychological Hx Reported Smoking Status: Never smoker Past Alcohol Use History: None Reported Past Drug Use History: None Reported Medications and Allergies Home Medications Medication Instructions Recorded Confirmed Type Insulin Glargine,Hum.rec.anlog 55 unit SQ HS 03/26/20 11/03/24 History [Lantus Solostar Pen] Atorvastatin [Lipitor] 40 mg PO DAILY 11/03/24 11/03/24 History Insulin Aspart [NovoLOG Flexpen] 12 units SQ TID 11/03/24 11/03/24 History Omeprazole 40 mg PO AC-BRKFST 11/03/24 11/03/24 History lisinopriL [Zestril] 10 mg PO DAILY 11/03/24 11/03/24 History metFORMIN HCL 1,000 mg PO BID 11/03/24 11/03/24 History Allergies Allergy/AdvReac Type Severity Reaction Status Date / Time No Known Allergies Allergy Verified 11/03/24 14:38 Physical Exam Vitals: Vital Signs Temp Pulse Resp BP Pulse Ox 11/03/24 12:49 100 17 156/84 96 11/03/24 09:26 98.2 F 119 H 20 163/102 99 Intake and Output 11/03/24 11/03/24 11/03/24 06:59 14:59 22:59 Other: Weight 104.326 kg GENERAL DESCRIPTION: Elderly male up in the chair no distress. No tachypnea or accessory muscle of respiration use. HEENT: Shows Pallor , no scleral icterus. Oral mucous membrane is dry. No pharyngeal erythema or thrush NECK: Trachea central, no thyromegaly. LUNGS: Unlabored breathing. Clear to auscultation anteriorly. No wheeze or crackle. HEART: S1, S2, regular rate and rhythm. No loud murmur ABDOMEN: Soft, no tenderness , guarding or rigidity, no organomegaly EXTREMITIES: Right big toe did have swelling redness to the wound on the tip of the big toe with some slough tissue and drainage SKIN: No rash, no masses palpable. NEUROLOGICAL: The patient is awake, alert, oriented x3, mood and affect normal. Results CBC & Chem 7: 11/03/24 10:36 11/03/24 10:36 Labs: Abnormal Lab Results - Last 24 Hours (Table) 11/03/24 11/03/24 11/03/24 Range/Units 10:36 10:36 11:37 RBC 4.24 L (4.40-5.60) 10*6/uL Hct 37.3 L (39.6-50.0) % Sodium 134 L (137-145) mmol/L Carbon Dioxide 21 L (22-30) mmol/L BUN 28 H (9-20) mg/dL Glucose 486 H (74-99) mg/dL Phosphorus 4.6 H (2.5-4.5) mg/dL AST 15 L (17-59) U/L C-Reactive Protein 1.7 H (<1.0) mg/dL Assessment and Plan (1) Diabetic infection of right foot Current Visit: Yes Status: Acute Code(s): E11.628 - TYPE 2 DIABETES MELLITUS WITH OTHER SKIN COMPLICATIONS; L08.9 - LOCAL INFECTION OF THE SKIN AND SUBCUTANEOUS TISSUE, UNSP SNOMED Code(s): 812909938 (2) Diabetic foot ulcer Current Visit: Yes Status: Acute Code(s): E11.621 - TYPE 2 DIABETES MELLITUS WITH FOOT ULCER; L97.509 - NON-PRESSURE CHRONIC ULCER OTH PRT UNSP FOOT W UNSP SEVERITY SNOMED Code(s): 371547541 (3) Osteomyelitis of great toe of right foot Current Visit: Yes Status: Acute Code(s): M86.9 - OSTEOMYELITIS, UNSPECIFIED SNOMED Code(s): 559114696 Plan: 1presented to hospital with right big toe swelling and redness and drainage in this patient who did have a chronic ulceration to the right big toe tip with abnormal x-ray concerning for osteomyelitis he will need to cover for the polymicrobial laura associated with diabetic foot infection. 2local culture has been obtained and will guide further antibiotic therapy. 3await vascular surgery evaluation for debridement and possible deep culture. 4will treat the patient with vancomycin pharmacy to dose however discontinue cefepime and start the patient on Unasyn 3 g every 6 hour while waiting for the culture to finalize. We will follow on clinical condition and cultures to further adjust medication if needed Thank you for this consultation we will follow the patient along with you Dictation was produced using [employer]out dictation software. please excuse any grammatical, word or spelling errors. Time with Patient: Greater than 30
[2024-11-04] MEDS: AMPICILLIN-SULBACTAM 3 GM in SODIUM CHLORIDE 0.9% 100 ML IVPB SCH (00:29)
[2024-11-04] MEDS: VANCOMYCIN 1,750 MG in SODIUM CHLORIDE 0.9% 500 ML 500 ML IVPB SCH (03:04)
[2024-11-04 06:18] LABS: Glucose,Whole Blood 233 mg/dL (70-110)
[2024-11-04] MEDS ORDERED: NON FORMULARY DRUG (Omeprazole [Omeprazole] 40 MG Capsule.Dr) PO SCH (07:30)
[2024-11-04] MEDS: PANTOPRAZOLE 40 MG/10 ML VIAL IV SCH (09:05)
[2024-11-04] MEDS: ATORVASTATIN 40 MG TAB PO SCH (09:05)
[2024-11-04] MEDS: lisinopriL 10 MG TAB PO SCH (09:05)
--- NOTE | 2024-11-04 09:11 | CONS ---
CONSULTATION HISTORY OF PRESENT ILLNESS: This is a 69-year-old diabetic male, who came to the emergency room with history of pain and bleeding and left foot big toe. According to the patient, he does not remember and no history of trauma. His medical history includes history of diabetes, under care of Dr. Taylor. His lab finding, his blood sugar was 486. PERSONAL HISTORY: No history of smoking. SURGICAL HISTORY: No major surgical intervention done in the past. PHYSICAL EXAMINATION: GENERAL: On examination, the patient was seen in his room, lying comfortably in bed. NECK: Supple. No bruit appreciated. CHEST: Clear to auscultation. HEART: First and second sounds present. ABDOMEN: Soft, nontender. VASCULAR: Femorals are 2+ bilaterally. Dorsal pedis are 1+ bilaterally. The patient has a left foot big toe, mild swelling noted. There is an incision at the pulp of the distal phalanx. Measurement is 1.5 x 1 cm with some bleeding noted. Right foot has no wound noted and the patient has a hammertoe of the left foot 2nd toe. PLAN: I have discussed the options with the patient. We will do the culture and the patient on IV antibiotic. We discussed about it, possible partial toe amputation. The patient wants to first treat with antibiotic and local wound care. We will arrange today. MMODL / IJN: [id number] /
[2024-11-04 09:36] LABS: Basophils # (A) 0.04 X 10*3/uL (0.00-0.10); Basophils % (A) 0.6 %; Eosinophils # (A) 0.17 X 10*3/uL (0.04-0.35); Eosinophils % (A) 2.4 %; HCT 36.7 % (39.6-50.0); HGB 12.2 g/dL (13.0-17.0); Lymphocytes % (A) 24.3 %; MCH 30.2 pg (27.0-32.0); MCHC 33.2 g/dL (32.0-37.0); MCV 90.8 FL (80.0-97.0); Mean Platelet Volume 10.3 FL (9.5-12.2); Monocytes # (A) 0.59 X 10*3/uL (0.20-1.00); Monocytes % (A) 8.4 %; NRBC Per 100 WBC 0 X 10*3/uL (0.00-0.01); Neutrophils # (A) 4.48 X 10*3/uL (1.80-7.70); Platelet Count 178 X 10*3/uL (140-440); RBC 4.04 X 10*6/uL (4.40-5.60); RDW 14.1 % (11.5-14.5)
[2024-11-04 09:46] LABS: BUN/Creat Ratio 25.75 Ratio (12.00-20.00); Blood Urea Nitrogen 20.6 mg/dL (9.0-27.0); Calcium 8.9 mg/dL (8.7-10.3); Carbon Dioxide 21.8 mmol/L (21.6-31.8); Chloride 106 mmol/L (96-109); Glucose 227 mg/dL (70-110); Potassium 4.1 mmol/L (3.5-5.5); Sodium 139 mmol/L (135-145)
--- NOTE | 2024-11-04 09:48 | OP ---
OPERATIVE REPORT DATE OF SERVICE : PREOPERATIVE DIAGNOSIS: Infected wound, left foot, big toe involving the distal phalanx, measurement is 1 x 1.5 x 1 cm. PROCEDURE: Debridement and the deep culture, left foot. NARRATIVE: The foot was prepped and draped in the usual sterile manner. The big toe had a wound, which we cleaned the wound with alcohol swab and 1% lidocaine was infiltrated. Using scissors, we did the debridement, some necrotic tissue was excised with a scissors, which was sent for the deep culture. No bone is exposed and there was some bleeding points, which was electrocoagulated. The wound was irrigated copiously with saline. Then, we placed Silver Rope and pressure dressing applied. The patient tolerated the procedure well. Plan is to walk on his heels and dressings will be changed on Wednesday using silver alginate. Pressure dressing applied. The patient tolerated the procedure well. MMFELIZL / GRETAN: [id number] /
[2024-11-04 11:41] LABS: Glucose,Whole Blood 207 mg/dL (70-110)
[2024-11-04] MEDS: LIDOCAINE 1% INJ 10MG/ML (20 ML MDV) SQ ONE (12:35)
[2024-11-04 13:16] VITALS: BMI 29.5
[2024-11-04 16:52] LABS: Glucose,Whole Blood 216 mg/dL (70-110)
--- NOTE | 2024-11-04 18:39 | P.PN ---
Subjective This is a pleasant 69 years old male with past medical history of multiple medical problems as below, mainly he has history of diabetes mellitus Patient presents because of swelling tenderness and redness of the right great toe for several weeks, patient denies trauma he does not recall how this happened [place] It is not painful but feels cold for him and swollen on the right Patient denies chest pain dyspnea. No specific GI/ symptoms. No headache dizziness weakness numbness. Labs showing unremarkable CBC, BMP, LFTs except for elevated glucose of 486 Show x-ray showing soft tissue wound with loss of the cortical margin of the distal phalanx of the right great toe 11/04 Patient pain control He is status post I&D of his right toe. Deep tissue sent for culture which is pending Currently covered with IV vancomycin and Unasyn per ID team recommendation Creatinine stable. Mild anemia with hemoglobin 12. Continue with insulin Objective - Vital Signs Vital signs: Vital Signs Temp 97.7 F 11/04/24 06:55 Pulse 78 11/04/24 06:55 Resp 18 11/04/24 06:55 BP 145/79 11/04/24 06:55 Pulse Ox 94 L 11/04/24 06:55 FiO2 Intake & Output 11/03/24 11/04/24 11/04/24 18:59 06:59 18:59 Output Total 0 Balance 0 Weight 104.326 kg Output: Urine 0 Other: # Voids 1 - Exam GENERAL: The patient is alert and oriented x3, not in any acute distress. Well d eveloped, well nourished. HEENT: Pupils are round and equally reacting to light. EOMI. No scleral icterus. No conjunctival pallor. Normocephalic, atraumatic. No pharyngeal erythema. No thyromegaly. CARDIOVASCULAR: S1 and S2 present. No murmurs, rubs, or gallops. PULMONARY: Chest is clear to auscultation, no wheezing , no crackles. ABDOMEN: Soft, nontender, nondistended, normoactive bowel sounds. No palpable organomegaly. MUSCULOSKELETAL: No joint swelling or deformity. -EXTREMITIES: No cyanosis, clubbing, or pedal edema. Right toe in a dressing NEUROLOGICAL: Gross neurological examination did not reveal any focal deficits. SKIN: No rashes. no petechiae. - Labs CBC & Chem 7: 11/04/24 04:27 11/04/24 04:27 Labs: Abnormal Lab Results - Last 24 Hours (Table) 11/03/24 11/03/24 11/03/24 Range/Units 10:36 10:36 11:37 RBC 4.24 L (4.40-5.60) 10*6/uL Hgb (13.0-17.0) g/dL Hct 37.3 L (39.6-50.0) % Sodium 134 L (137-145) mmol/L Carbon Dioxide 21 L (22-30) mmol/L BUN 28 H (9-20) mg/dL BUN/Creatinine Ratio (12.00-20.00) Ratio Glucose 486 H (74-99) mg/dL POC Glucose (mg/dL) (70-110) mg/dL Hemoglobin A1c (<=6.0) % Phosphorus 4.6 H (2.5-4.5) mg/dL AST 15 L (17-59) U/L C-Reactive Protein 1.7 H (<1.0) mg/dL 11/03/24 11/03/24 11/04/24 Range/Units 15:46 21:00 04:27 RBC (4.40-5.60) 10*6/uL Hgb (13.0-17.0) g/dL Hct (39.6-50.0) % Sodium (137-145) mmol/L Carbon Dioxide (22-30) mmol/L BUN (9-20) mg/dL BUN/Creatinine Ratio (12.00-20.00) Ratio Glucose (74-99) mg/dL POC Glucose (mg/dL) 380 H 356 H (70-110) mg/dL Hemoglobin A1c 12.8 H (<=6.0) % Phosphorus (2.5-4.5) mg/dL AST (17-59) U/L C-Reactive Protein (<1.0) mg/dL 11/04/24 11/04/24 11/04/24 Range/Units 04:27 04:27 06:17 RBC 4.04 L (4.40-5.60) 10*6/uL Hgb 12.2 L (13.0-17.0) g/dL Hct 36.7 L (39.6-50.0) % Sodium (137-145) mmol/L Carbon Dioxide (22-30) mmol/L BUN (9-20) mg/dL BUN/Creatinine Ratio 25.75 H (12.00-20.00) Ratio Glucose 227 H (74-99) mg/dL POC Glucose (mg/dL) 233 H (70-110) mg/dL Hemoglobin A1c (<=6.0) % Phosphorus (2.5-4.5) mg/dL AST (17-59) U/L C-Reactive Protein (<1.0) mg/dL Microbiology - Last 24 Hours (Table) 11/03/24 11:35 Gram Stain - Preliminary Foot - Right Assessment and Plan Assessment: Right great toe cellulitis and possible osteomyelitis. Status post I&D on 11/04 Diabetes mellitus with hyperglycemia Plan: Continue with antibiotic, currently on IV vancomycin and cefepime Vascular surgery team consult Infectious disease team consult Labs and medication were reviewed.. Continue same treatment. Continue with symptomatic treatment. Resume home medication. Monitor labs and vitals. DVT and GI prophylaxis. Further recommendations as per clinical course of the patient DVT prophylaxis: Subcutaneous heparin GI Prophylaxis: Pepcid PT/OT: Pending Prognosis is guarded
[2024-11-04 20:14] LABS: Glucose,Whole Blood 112 mg/dL (70-110)
--- NOTE | 2024-11-04 20:18 | P.PN ---
Subjective Progress Note Date: 11/04/24 Principal diagnosis: Reason for follow-up is right big toe ulcer and osteomyelitis Patient is a 69-year-old male with a past medical history significant for diabetes mellitus presenting to the hospital for evaluation of infection to the right big toe this patient who did have a right big toe ulcer with abnormal x-ray concerning for osteomyelitis. On today's evaluation that is 11/05/2023, patient did have a temperature of 97.7 F this morning and denies having any chills, patient is on room air and breathing comfortably no chest pain or cough, the patient did not have any nausea vomiting abdominal pain or any diarrhea, denies pain to the right big toe. Patient white count is 7000, creatinine 0.8 cultures currently pending Objective - Vital Signs Vital signs: Vital Signs Temp 97.8 F 11/04/24 13:54 Pulse 80 11/04/24 13:54 Resp 17 11/04/24 13:54 BP 117/68 11/04/24 13:54 Pulse Ox 94 L 11/04/24 13:54 FiO2 Intake & Output 11/03/24 11/04/24 11/04/24 18:59 06:59 18:59 Output Total 0 Balance 0 Weight 104.326 kg 104.326 kg Output: Urine 0 Other: # Voids 1 - Exam GENERAL DESCRIPTION: An elderly male up in the chair in no distress RESPIRATORY SYSTEM: Unlabored breathing , decreased breath sounds at bases HEART: S1 S2 regular rate and rhythm , ABDOMEN: Soft , no tenderness EXTREMITIES: Right big toe is currently dressed - Labs CBC & Chem 7: 11/04/24 04:27 11/04/24 04:27 Labs: Abnormal Lab Results - Last 24 Hours (Table) 11/03/24 11/04/24 11/04/24 Range/Units 21:00 04:27 04:27 RBC 4.04 L (4.40-5.60) X 10*6/uL Hgb 12.2 L (13.0-17.0) g/dL Hct 36.7 L (39.6-50.0) % BUN/Creatinine Ratio (12.00-20.00) Ratio Glucose (70-110) mg/dL POC Glucose (mg/dL) 356 H (70-110) mg/dL Hemoglobin A1c 12.8 H (<=6.0) % 11/04/24 11/04/24 11/04/24 Range/Units 04:27 06:17 11:40 RBC (4.40-5.60) X 10*6/uL Hgb (13.0-17.0) g/dL Hct (39.6-50.0) % BUN/Creatinine Ratio 25.75 H (12.00-20.00) Ratio Glucose 227 H (70-110) mg/dL POC Glucose (mg/dL) 233 H 207 H (70-110) mg/dL Hemoglobin A1c (<=6.0) % 11/04/24 Range/Units 16:43 RBC (4.40-5.60) X 10*6/uL Hgb (13.0-17.0) g/dL Hct (39.6-50.0) % BUN/Creatinine Ratio (12.00-20.00) Ratio Glucose (70-110) mg/dL POC Glucose (mg/dL) 216 H (70-110) mg/dL Hemoglobin A1c (<=6.0) % Microbiology - Last 24 Hours (Table) 11/03/24 11:35 Blood Culture - Preliminary Blood 11/03/24 11:35 Gram Stain - Preliminary Foot - Right Wound Culture - Preliminary Assessment and Plan (1) Diabetic infection of right foot Current Visit: Yes Status: Acute Code(s): E11.628 - TYPE 2 DIABETES MELLITUS WITH OTHER SKIN COMPLICATIONS; L08.9 - LOCAL INFECTION OF THE SKIN AND SUBCUTANEOUS TISSUE, UNSP SNOMED Code(s): 910821648 (2) Diabetic foot ulcer Current Visit: Yes Status: Acute Code(s): E11.621 - TYPE 2 DIABETES MELLITUS WITH FOOT ULCER; L97.509 - NON-PRESSURE CHRONIC ULCER OTH PRT UNSP FOOT W UNSP SEVERITY SNOMED Code(s): 811307502 (3) Osteomyelitis of great toe of right foot Current Visit: Yes Status: Acute Code(s): M86.9 - OSTEOMYELITIS, UNSPECIFIED SNOMED Code(s): 724657938 Plan: 1presented to hospital with right big toe swelling and redness and drainage in this patient who did have a chronic ulceration to the right big toe tip with abnormal x-ray concerning for osteomyelitis he will need to cover for the polymicrobial laura associated with diabetic foot infection. 2local culture has been obtained a which are currently pending 3await vascular surgery evaluation for debridement and possible deep culture. 4patient is currently being treated vancomycin pharmacy to dose and Unasyn 3 g every 6 hour while waiting for the culture to finalize. Will likely need PICC line outpatient IV antibiotic therapy this was discussed with the patient Dictation was produced using [employer] dictation software. please excuse any grammatical, word or spelling errors. Time with Patient: Less than 30
[2024-11-05 06:26] LABS: Glucose,Whole Blood 85 mg/dL (70-110)
[2024-11-05] MEDS: HYDROcodone/APAP 5-325MG 1 EACH TAB PO PRN (09:24)
[2024-11-05 12:04] LABS: Glucose,Whole Blood 179 mg/dL (70-110)
[2024-11-05 12:54] LABS: African American GFR (CKD) >90 (>60 ml/min/1.73 sqM); Non-African American GFR(CKD) >90 (>60 ml/min/1.73 sqM)
[2024-11-05] MEDS: VANCOMYCIN TROUGH DUE 1 EACH MISC MISCELLANE ONE (13:02)
[2024-11-05 16:33] LABS: Glucose,Whole Blood 84 mg/dL (70-110)
[2024-11-05 20:23] LABS: Glucose,Whole Blood 112 mg/dL (70-110)
[2024-11-06] MEDS: VANCOMYCIN 2,000 MG in SODIUM CHLORIDE 0.9% 500 ML 500 ML IVPB SCH (00:03)
--- NOTE | 2024-11-06 00:40 | P.PN ---
Subjective This is a pleasant 69 years old male with past medical history of multiple medical problems as below, mainly he has history of diabetes mellitus Patient presents because of swelling tenderness and redness of the right great toe for several weeks, patient denies trauma he does not recall how this [place] It is not painful but feels cold for him and swollen on the right Patient denies chest pain dyspnea. No specific GI/ symptoms. No headache dizziness weakness numbness. Labs showing unremarkable CBC, BMP, LFTs except for elevated glucose of 486 Show x-ray showing soft tissue wound with loss of the cortical margin of the distal phalanx of the right great toe 11/04 Patient pain control He is status post I&D of his right toe. Deep tissue sent for culture which is pending Currently covered with IV vancomycin and Unasyn per ID team recommendation Creatinine stable. Mild anemia with hemoglobin 12. Continue with insulin 11/05 No new complaint Toe pain controlled Wound culture is still pending Objective - Vital Signs Vital signs: Vital Signs Temp 98.2 F 11/05/24 19:01 Pulse 84 11/05/24 19:01 Resp 18 11/05/24 19:01 BP 168/88 11/05/24 19:01 Pulse Ox 95 11/05/24 19:01 FiO2 Intake & Output 11/05/24 11/05/24 11/06/24 06:59 18:59 06:59 Other: # Voids 1 3 - Exam GENERAL: The patient is alert and oriented x3, not in any acute distress. Well developed, well nourished. HEENT: Pupils are round and equally reacting to light. EOMI. No scleral icterus. No conjunctival pallor. Normocephalic, atraumatic. No pharyngeal erythema. No thyromegaly. CARDIOVASCULAR: S1 and S2 present. No murmurs, rubs, or gallops. PULMONARY: Chest is clear to auscultation, no wheezing , no crackles. ABDOMEN: Soft, nontender, nondistended, normoactive bowel sounds. No palpable organomegaly. MUSCULOSKELETAL: No joint swelling or deformity. -EXTREMITIES: No cyanosis, clubbing, or pedal edema. Right toe in a dressing NEUROLOGICAL: Gross neurological examination did not reveal any focal deficits. SKIN: No rashes. no petechiae. - Labs CBC & Chem 7: 11/04/24 04:27 11/05/24 12:21 Labs: Abnormal Lab Results - Last 24 Hours (Table) 11/05/24 11/05/24 11/05/24 Range/Units 12:03 12:21 20:22 Creatinine 0.57 L (0.66-1.25) mg/dL POC Glucose (mg/dL) 179 H 112 H (70-110) mg/dL Microbiology - Last 24 Hours (Table) 11/03/24 11:35 Blood Culture - Preliminary Blood 11/04/24 08:00 Gram Stain - Preliminary Toe - Right First Wound Culture - Preliminary Assessment and Plan Assessment: Right great toe cellulitis and possible osteomyelitis. Status post I&D on 11/04 Diabetes mellitus with hyperglycemia Plan: Continue with antibiotic, currently on IV vancomycin and cefepime Vascular surgery team consult Infectious disease team consult Labs and medication were reviewed.. Continue same treatment. Continue with symptomatic treatment. Resume home medication. Monitor labs and vitals. DVT and GI prophylaxis. Further recommendations as per clinical course of the patient DVT prophylaxis: Subcutaneous heparin GI Prophylaxis: Pepcid PT/OT: Pending Prognosis is guarded
[2024-11-06 03:58] LABS: African American GFR (CKD) >90 (>60 ml/min/1.73 sqM); Non-African American GFR(CKD) >90 (>60 ml/min/1.73 sqM)
[2024-11-06 06:29] LABS: Glucose,Whole Blood 73 mg/dL (70-110)
[2024-11-06 11:01] LABS: Glucose,Whole Blood 138 mg/dL (70-110)
--- NOTE | 2024-11-06 12:46 | P.PN ---
Progress Note - Text 69-year-old gentleman who came with infected wound right foot big toe involving the tip of the big toe with open wound we did wound debridement and deep culture which was sent for aerobic and anaerobic patient is on IV antibiotic under care of infectious disease today we have changed the dressing wound is clean no wound is exposed base of the wound granulating we have been using silver alginate as patient is under care of infectious disease for IV antibiotic dressing should be changed every 48 hours advised nonweightbearing he can walk on his heel we will follow-up with you after the PICC line IV antibiotic patient will come to the wound clinic at [facility] on Wednesday to follow-up with me
--- NOTE | 2024-11-06 13:34 | CDI ---
Documentation Clarification Form Date: 11/06/2024 01:12:50 PM From: Patti Cardona RN CCDS Phone: [phone] Admit Date: 11/03/2024 12:12:00 PM Patient Name: Masoud Simmons Visit Number: [id number] Discharge Date: ATTENTION: The Clinical Documentation Specialists (CDI) and [facility] Coding Staff appreciate your assistance in clarifying documentation. Please respond to the clarification below the line at the bottom and electronically sign. The CDI & [facility] Coding staff will review the response and follow-up if needed. Please note: Queries are made part of the Legal Health Record. If you have any questions, please contact the author of this message via ITS. Doctor: Marvin Moon A debridement is documented 11/04. Unfortunately, some required elements have not been documented. Additional clarification regarding the procedure is requested. History/Risk Factors: 69 year old male presents to the ED with concerns of an infection to his right great toe. Has noticed discoloration to the top of the toe and swelling with drainage for the last couple of days. Medical history: DM2, HP 11/03 Clinical Indicators: Using scissors, we did the debridement, some necrotic tissue was excised with a scissors, which was sent for the deep culture. No bone is exposed tissue was excised with a scissors, which was sent for the deep culture. No bone is exposed and there was some bleeding points, which was electro coagulated. The wound was irrigated copiously with saline. Then, we placed Silver Rope and pressure dressing applied. Treatment: Excisional debridement, deep culture, Silver alginate, pressure dressing. Please clarify the procedure performed Appearance of the wound and depth of debridement: Excisional debridement (the removal of necrotic, devitalized tissue or slough by means of cutting away of tissue) Instrument: Scissors Nature of the tissue removed Necrotic Appearance of the wound (please specify) devitalized tissue_x__necrotic tissue____ Depth of debridement (please specifiy) _x_subcutaneous Five elements required for accurate and compliant documentation of a debridement: -Technique used (e.g., excisional, excised, cutting, brushing, jet lavage etc.) -Instrument(s) used (e.g., scalpel, curette, etc.) -Nature of the tissue removed (e.g., necrotic, devitalized tissues, non-viable tissue, etc.) -Appearance and size of the wound (e.g., down to fresh bleeding tissue, 7cm x 10cm, etc.) -Depth of the debridement* (e.g., skin, subcutaneous tissue, fascia, muscle, bone, etc.) (Template Last Revised: January 2024) MTDD
[2024-11-06 16:17] LABS: Glucose,Whole Blood 91 mg/dL (70-110)
[2024-11-06 21:08] LABS: Glucose,Whole Blood 133 mg/dL (70-110)
[2024-11-07 02:26] VITALS: RESP 18
[2024-11-07 03:51] LABS: African American GFR (CKD) >90 (>60 ml/min/1.73 sqM); Non-African American GFR(CKD) >90 (>60 ml/min/1.73 sqM)
--- NOTE | 2024-11-07 05:45 | P.PN ---
Subjective Progress Note Date: 11/06/24 This is a pleasant 69 years old male with past medical history of multiple medical problems as below, mainly he has history of diabetes mellitus Patient presents because of swelling tenderness and redness of the right great toe for several weeks, patient denies trauma he does not recall how [place] It is not painful but feels cold for him and swollen on the right Patient denies chest pain dyspnea. No specific GI/ symptoms. No headache dizziness weakness numbness. Labs showing unremarkable CBC, BMP, LFTs except for elevated glucose of 486 Show x-ray showing soft tissue wound with loss of the cortical margin of the distal phalanx of the right great toe 11/04 Patient pain control He is status post I&D of his right toe. Deep tissue sent for culture which is pending Currently covered with IV vancomycin and Unasyn per ID team recommendation Creatinine stable. Mild anemia with hemoglobin 12. Continue with insulin 11/05 No new complaint Toe pain controlled Wound culture is still pending 11/06/2024 Patient is seen in follow-up with no acute overnight issues noted. Patient being followed by infectious disease maintained on IV antibiotics and awaiting to receive a PICC line as plan is for patient to continue on IV antibiotic therapy on discharge. Will discuss further with case management regarding discharge planning if patient will require ECF or if patient is going home. Patient is afebrile with no reports of chest pain or shortness of breath. Patient reports to tolerating diet with no reported nausea or vomiting. Patient would like to go home today as well. Patient will require insurance verification and coverage for IV antibiotics outpatient as well. Review of systems: Constitutional: No reports of fatigue, fever, or chills Cardiovascular: No reports of chest pain or palpitations Respiratory: No reports of shortness of breath or cough GI: No reports of nausea, no reports of vomiting, no diarrhea : No reports of dysuria or retention Neurovascular: reports of generalized weakness All medications have been reviewed PHYSICAL EXAMINATION: GENERAL: The patient is alert and oriented x4, Well developed, well nourished. Appears older than stated age HEENT: Pupils are round and equally reacting to light. EOMI. no scleral icterus. No conjunctival pallor. Normocephalic, atraumatic. No pharyngeal erythema. No thyromegaly. CARDIOVASCULAR: S1 and S2 muffled PULMONARY: diminished breath sounds bilaterally with no wheezing or rhonchi noted. ABDOMEN: soft. Nontender on exam. obese. non-distended, normoactive bowel sounds. No palpable organomegaly. MUSCULOSKELETAL: No joint swelling or deformity. EXTREMITIES: No cyanosis, clubbing, or pedal edema. Right great toe dressing is dry and intact NEUROLOGICAL: Gross neurological examination did not reveal any focal deficits. Diffuse weakness SKIN: No rashes. Assessment: Right great toe cellulitis and possible osteomyelitis. Status post I&D on 11/04 Diabetes mellitus, type II, uncontrolled with hyperglycemia, hemoglobin A1c is 12.8 GI prophylaxis DVT prophylactics Full code Plan: Continue with antibiotic, currently on IV vancomycin and cefepime with infectious disease following surgery Dr. Moon. Patient is scheduled to receive a PICC line Case management following making arrangements and verifying coverage for antibiotics in the outpatient setting. Plan is to return home versus possible ECF. Will discuss further with case management and patient regarding discharge planning Exa encouraged to increase activity as tolerated Continue local wound care and patient will require close outpatient follow-up with the wound care center with vascular surgery Will discuss with other consultations along with case management regarding discharge planning possibly in the next 24 to 48 hours Due to multiple complex medical issues, overall prognosis is guarded The impression and plan of care has been dictated by Annette Ulloa, nurse practitioner as directed. Dr. Anish MD I have performed a history and examination and MDM of this patient, discussed the same with the dictator, and agree with the dictator's assessment and plan a s written ,documented as a scribe. Based on total visit time, I have performed more than 50% of the visit. Any additional findings or plans will be noted. Objective - Vital Signs Vital signs: Vital Signs Temp 97.8 F 11/06/24 07:46 Pulse 78 11/06/24 07:46 Resp 17 11/06/24 07:46 BP 159/92 11/06/24 07:46 Pulse Ox 95 11/06/24 07:46 FiO2 Intake & Output 11/05/24 11/06/24 11/06/24 18:59 06:59 18:59 Other: # Voids 3 2 - Labs CBC & Chem 7: 11/04/24 04:27 11/07/24 02:44 Labs: Abnormal Lab Results - Last 24 Hours (Table) 06/11/05/24 11/06/24 Range/Units 12:21 20:22 10:59 Creatinine 0.57 L (0.66-1.25) mg/dL POC Glucose (mg/dL) 112 H 138 H (70-110) mg/dL Microbiology - Last 24 Hours (Table) 11/03/24 11:35 Anaerobic Culture - Final Foot - Right Clostridium species Prevotella dalee 11/03/24 11:35 Blood Culture - Preliminary Blood 11/04/24 08:00 Gram Stain - Preliminary Toe - Right First Wound Culture - Preliminary
[2024-11-07 06:14] LABS: Glucose,Whole Blood 96 mg/dL (70-110)
[2024-11-07 11:21] LABS: Glucose,Whole Blood 97 mg/dL (70-110)
--- NOTE | 2024-11-07 13:56 | P.PN ---
Subjective Progress Note Date: 11/06/24 Principal diagnosis: Reason for follow-up is right big toe ulcer and osteomyelitis Patient is a 69-year-old male with a past medical history significant for diabetes mellitus presenting to the hospital for evaluation of infection to the right big toe this patient who did have a right big toe ulcer with abnormal x-ray concerning for osteomyelitis. On today's evaluation that is 11/06/2024, patient has been afebrile, patient is breathing comfortably and is currently on room air, patient denies having any chest pain and cough, patient denies nausea vomiting or diarrhea and no abdominal pain. Patient white count is 0.67 cultures currently growing Clostridium Prevotella and staph with sensitivities pending Objective - Vital Signs Vital signs: Vital Signs Temp 97.8 F 11/06/24 07:46 Pulse 78 11/06/24 07:46 Resp 17 11/06/24 07:46 BP 159/92 11/06/24 07:46 Pulse Ox 95 11/06/24 07:46 FiO2 Intake & Output 11/05/24 11/06/24 11/06/24 18:59 06:59 18:59 Other: # Voids 3 2 - Exam GENERAL DESCRIPTION: An elderly male up in the chair in no distress RESPIRATORY SYSTEM: Unlabored breathing , decreased breath sounds at bases HEART: S1 S2 regular rate and rhythm , ABDOMEN: Soft , no tenderness EXTREMITIES: Right big toe/foot is currently dressed - Labs CBC & Chem 7: 11/04/24 04:27 11/07/24 02:44 Labs: Abnormal Lab Results - Last 24 Hours (Table) 11/05/24 11/06/24 Range/Units 20:22 10:59 POC Glucose (mg/dL) 112 H 138 H (70-110) mg/dL Microbiology - Last 24 Hours (Table) 11/03/24 11:35 Gram Stain - Preliminary Foot - Right Wound Culture - Preliminary Presumptive Staph aureus 11/04/24 08:00 Gram Stain - Final Toe - Right First Wound Culture - Final 11/03/24 11:35 Anaerobic Culture - Final Foot - Right Clostridium species Prevotella buccae 11/03/24 11:35 Blood Culture - Preliminary Blood Assessment and Plan (1) Diabetic infection of right foot Current Visit: Yes Status: Acute Code(s): E11.628 - TYPE 2 DIABETES MELLITUS WITH OTHER SKIN COMPLICATIONS; L08.9 - LOCAL INFECTION OF THE SKIN AND SUBCUTANEOUS TISSUE, UNSP SNOMED Code(s): 995249436 (2) Diabetic foot ulcer Current Visit: Yes Status: Acute Code(s): E11.621 - TYPE 2 DIABETES MELLITUS WITH FOOT ULCER; L97.509 - NON-PRESSURE CHRONIC ULCER OTH PRT UNSP FOOT W UNSP SEVERITY SNOMED Code(s): 104116140 (3) Osteomyelitis of great toe of right foot Current Visit: Yes Status: Acute Code(s): M86.9 - OSTEOMYELITIS, UNSPECIFIED SNOMED Code(s): 531749388 Plan: 1presented to hospital with right big toe swelling and redness and drainage in this patient who did have a chronic ulceration to the right big toe tip with abnormal x-ray concerning for osteomyelitis he will need to cover for the polymicrobial laura associated with diabetic foot infection. 2local culture has been obtained a which are currently pending 3patient is status post vascular surgery evaluation for debridement and deep cultures currently growing Clostridium Prevotella and staph with sensitivities pending 4patient is currently being treated vancomycin pharmacy to dose and Unasyn 3 g every 6 hour while waiting for the culture to finalize to determine discharge antibiotics PICC line placed Dictation was produced using [employer] dictation software. please excuse any grammatical, word or spelling errors. Time with Patient: Less than 30
--- NOTE | 2024-11-07 13:56 | P.PN ---
Subjective Progress Note Date: 11/05/24 Principal diagnosis: Reason for follow-up is right big toe ulcer and osteomyelitis Patient is a 69-year-old male with a past medical history significant for diabetes mellitus presenting to the hospital for evaluation of infection to the right big toe this patient who did have a right big toe ulcer with abnormal x-ray concerning for osteomyelitis. On today's evaluation that is 11/05/2024, patient has been afebrile, patient is breathing comfortably and is currently on room air, patient denies having any chest pain and cough, patient denies nausea vomiting or diarrhea and no abdominal pain, pain to the right big toe is currently controlled. Patient did have a creatinine 0.57 cultures are currently pending Objective - Vital Signs Vital signs: Vital Signs Temp 97.5 F L 11/05/24 14:11 Pulse 83 11/05/24 14:11 Resp 17 11/05/24 14:11 BP 144/80 11/05/24 14:11 Pulse Ox 94 L 11/05/24 14:11 FiO2 Intake & Output 11/04/24 11/05/24 11/05/24 18:59 06:59 18:59 Weight 104.326 kg Other: # Voids 2 1 - Exam GENERAL DESCRIPTION: An elderly male up in the chair in no distress RESPIRATORY SYSTEM: Unlabored breathing , decreased breath sounds at bases HEART: S1 S2 regular rate and rhythm , ABDOMEN: Soft , no tenderness EXTREMITIES: Right big toe overall swelling redness slightly decreased wound base looks clean wound was examined with the surgeon at the bedside - Labs CBC & Chem 7: 11/04/24 04:27 11/07/24 02:44 Labs: Abnormal Lab Results - Last 24 Hours (Table) 11/04/24 11/04/24 11/05/24 Range/Units 16:43 20:13 12:03 Creatinine (0.66-1.25) mg/dL POC Glucose (mg/dL) 216 H 112 H 179 H (70-110) mg/dL 11/05/24 Range/Units 12:21 Creatinine 0.57 L (0.66-1.25) mg/dL POC Glucose (mg/dL) (70-110) mg/dL Microbiology - Last 24 Hours (Table) 11/04/24 08:00 Gram Stain - Preliminary Toe - Right First Wound Culture - Preliminary 11/03/24 11:35 Blood Culture - Preliminary Blood 11/03/24 11:35 Gram Stain - Preliminary Foot - Right Wound Culture - Preliminary Assessment and Plan (1) Diabetic infection of right foot Current Visit: Yes Status: Acute Code(s): E11.628 - TYPE 2 DIABETES MELLITUS WITH OTHER SKIN COMPLICATIONS; L08.9 - LOCAL INFECTION OF THE SKIN AND SUBCUTANEOUS TISSUE, UNSP SNOMED Code(s): 506732386 (2) Diabetic foot ulcer Current Visit: Yes Status: Acute Code(s): E11.621 - TYPE 2 DIABETES MELLITUS WITH FOOT ULCER; L97.509 - NON-PRESSURE CHRONIC ULCER OTH PRT UNSP FOOT W UNSP SEVERITY SNOMED Code(s): 945978131 (3) Osteomyelitis of great toe of right foot Current Visit: Yes Status: Acute Code(s): M86.9 - OSTEOMYELITIS, UNSPECIFIED SNOMED Code(s): 228237453 Plan: 1presented to hospital with right big toe swelling and redness and drainage in this patient who did have a chronic ulceration to the right big toe tip with abnormal x-ray concerning for osteomyelitis he will need to cover for the polymicrobial laura associated with diabetic foot infection. 2local culture has been obtained a which are currently pending 3patient is status post vascular surgery evaluation for debridement and deep cultures currently pending 4patient is currently being treated vancomycin pharmacy to dose and Unasyn 3 g every 6 hour while waiting for the culture to finalize. We will order PICC line for outpatient IV antibiotic Dictation was produced using [employer] dictation software. please excuse any grammatical, word or spelling errors. Time with Patient: Less than 30
--- NOTE | 2024-11-07 13:58 | P.PN ---
Subjective Progress Note Date: 11/07/24 Principal diagnosis: Reason for follow-up is right big toe ulcer and osteomyelitis Patient is a 69-year-old male with a past medical history significant for diabetes mellitus presenting to the hospital for evaluation of infection to the right big toe this patient who did have a right big toe ulcer with abnormal x-ray concerning for osteomyelitis. On today's evaluation that is 11/07/2024, Patient is afebrile this morning patient denies having any chest pain shortness of breath or cough, the patient is currently on room air, patient denies any abdominal pain no diarrhea no nausea no vomiting. Patient denies pain to his right big toe feeling better wants to get out Patient did have a creatinine 0.64, local culture finalized with MSSA Prevotella and Clostridium Objective - Vital Signs Vital signs: Vital Signs Temp 98.0 F 11/07/24 07:18 Pulse 81 11/07/24 07:18 Resp 18 11/07/24 07:18 BP 176/101 11/07/24 07:18 Pulse Ox 96 11/07/24 07:18 FiO2 Intake & Output 11/06/24 11/07/24 11/07/24 18:59 06:59 18:59 Intake Total 540 Balance 540 Intake: Oral 540 Other: # Voids 3 3 - Exam GENERAL DESCRIPTION: An elderly male up in the chair in no distress RESPIRATORY SYSTEM: Unlabored breathing , decreased breath sounds at bases HEART: S1 S2 regular rate and rhythm , ABDOMEN: Soft , no tenderness EXTREMITIES: Right big toe/foot is currently dressed - Labs CBC & Chem 7: 11/04/24 04:27 11/07/24 02:44 Labs: Abnormal Lab Results - Last 24 Hours (Table) 11/06/24 11/07/24 Range/Units 21:07 02:44 Creatinine 0.64 L (0.66-1.25) mg/dL POC Glucose (mg/dL) 133 H (70-110) mg/dL Microbiology - Last 24 Hours (Table) 11/03/24 11:35 Gram Stain - Final Foot - Right Wound Culture - Final Staphylococcus aureus 11/03/24 11:35 Blood Culture - Preliminary Blood 11/04/24 08:00 Anaerobic Culture - Preliminary Toe - Right First 11/04/24 08:00 Gram Stain - Final Toe - Right First Wound Culture - Final 11/03/24 11:35 Anaerobic Culture - Final Foot - Right Clostridium species Prevotella b[place]leye Assessment and Plan (1) Diabetic infection of right foot Current Visit: Yes Status: Acute Code(s): E11.628 - TYPE 2 DIABETES MELLITUS WITH OTHER SKIN COMPLICATIONS; L08.9 - LOCAL INFECTION OF THE SKIN AND SUBCUTANEOUS TISSUE, UNSP SNOMED Code(s): 333220670 (2) Diabetic foot ulcer Current Visit: Yes Status: Acute Code(s): E11.621 - TYPE 2 DIABETES MELLITUS WITH FOOT ULCER; L97.509 - NON-PRESSURE CHRONIC ULCER OTH PRT UNSP FOOT W UNSP SEVERITY SNOMED Code(s): 439053884 (3) Osteomyelitis of great toe of right foot Current Visit: Yes Status: Acute Code(s): M86.9 - OSTEOMYELITIS, UNSPECIFIED SNOMED Code(s): 306488418 Plan: 1presented to hospital with right big toe swelling and redness and drainage in this patient who did have a chronic ulceration to the right big toe tip with abnormal x-ray concerning for osteomyelitis he will need to cover for the polymicrobial laura associated with diabetic foot infection. 2local culture has been obtained a which are currently pending 3patient is status post vascular surgery evaluation for debridement and deep cultures currently growing Clostridium Prevotella and MSSA 4patient was advised cefazolin 2 g every 8 hours along with oral Flagyl however per the rn case manager patient do not have coverage for home IV antibiotic therapy and needs to go to infusion clinic hence we will switch him over to Rocephin 2 g daily along with oral Flagyl 500 mg every 8 hours for 6 weeks and close out patient follow-up Dictation was produced using [employer] dictation software. please excuse any grammatical, word or spelling errors. Time with Patient: Less than 30
[2024-11-07 14:42] VITALS: BP 169/96; PULSE 84; TEMP 97.7
--- NOTE | 2024-11-07 21:17 | PN ---
PROGRESS NOTE SUBJECTIVE: A 69-year-old gentleman. He had a big toe debridement done. The patient has an open wound and IV antibiotic per Infectious Disease. They have been changing dressing with silver alginate. The patient is going home today, will follow up in the Wound Clinic on Wednesday. JED / PEYTON: [id number] /
--- NOTE | 2024-11-13 06:15 | P.DS ---
Providers Date of admission: 11/03/24 12:12 Expected date of discharge: 11/07/24 Attending physician: Jayce Lyon MD Consults: 11/03/24 11:45 Consult Physician Urgent Consulting Provider: Marvin Moon Consult Reason/Comments: Osteomyelitis of right great toe Do you want consulting provider notified?: Yes Consult Physician Urgent Consulting Provider: Deysi Thompson Consult Reason/Comments: Osteomyelitis of right great toe Do you want consulting provider notified?: Yes Primary care physician: Ravinder Colin Hospital Course: Final diagnosis Right great toe cellulitis and possible osteomyelitis. Status post I&D on 11/04 culture showing Staph aureus Diabetes mellitus, type II, uncontrolled with hyperglycemia, hemoglobin A1c is 12.8 GI prophylaxis DVT prophylactics Full code Discharge disposition Patient is being discharged in a stable condition with guarded prognosis to home with continued home care. Patient will follow-up with Dr. Colin in the outpatient setting upon discharge. Patient is to continue with IV antibiotics per ID recommendations and close outpatient follow-up with the wound care center and Dr. Moon vascular surgery as scheduled. Total time taken is greater than 35 minutes. Hospital course This is a 69-year-old male who was recently admitted with right great toe cellulitis with concerns of osteomyelitis status post incision and drainage with vascular surgery. Culture showing Staph aureus and patient is receiving a PICC line per infectious disease and will continue on IV antibiotic therapy on discharge. Home care is being arranged and patient has been cleared for discharge home. Patient reports to feeling well would like to go home. Please refer to other consultation notes for further HPI. Currently no reports of chest pain, shortness of breath, or palpitations. Patient is afebrile. No reports of nausea or vomiting and patient is tolerating diet. Patient will be discharged home with home care today. Guarded prognosis Physical exam: Gen: This is a 69-year-old male who is awake, alert and oriented x 3, well- developed, elderly appearing HEENT: Head is atraumatic, normocephalic. Pupils equal, round. Sclerae is anicteric. NECK: Supple. No JVD. No lymphadenopathy. No thyromegaly. LUNGS: Diminished breath sounds bilaterally otherwise clear to auscultation. No wheezes or rhonchi. No intercostal retractions. HEART: S1, S2 are muffled ABDOMEN: Soft. Bowel sounds are present. No masses. No tenderness. EXTREMITIES: No pedal edema. No calf tenderness. Right great toe dressing currently dry and intact with Kerlix noted NEUROLOGICAL: Patient is awake, alert and oriented x3. Cranial nerves 2 through 12 are grossly intact. Please refer to medication reconciliation sheet for a list of medications. The impression and plan of care has been dictated by Annette Ulloa, Nurse Practitioner as directed. Dr. Anish MD I have performed a history and examination and MDM of this patient, discussed the same with the dictator, and agree with the dictator's assessment and plan as written ,documented as a scribe. Based on total visit time, I have performed more than 50% of the visit. Patient Condition at Discharge: Fair Plan - Discharge Summary New Discharge Prescriptions: New Acetaminophen Tab [Tylenol] 650 mg PO Q6HR PRN tab PRN Reason: Mild Pain Or Fever > 100.5 metroNIDAZOLE [Flagyl] 500 mg PO TID #126 tab cefTRIAXone [Rocephin] 2,000 mg IVP Q24HR #42 each Continue Insulin Glargine,Hum.rec.anlog [Lantus Solostar Pen] 55 unit SQ HS metFORMIN HCL 1,000 mg PO BID Omeprazole 40 mg PO AC-BRKFST Insulin Aspart [NovoLOG Flexpen] 12 units SQ TID lisinopriL [Zestril] 10 mg PO DAILY Atorvastatin [Lipitor] 40 mg PO DAILY Discharge Medication List Insulin Glargine,Hum.rec.anlog [Lantus Solostar Pen] 55 unit SQ HS 03/26/20 [History] Atorvastatin [Lipitor] 40 mg PO DAILY 11/03/24 [History] Insulin Aspart [NovoLOG Flexpen] 12 units SQ TID 11/03/24 [History] Omeprazole 40 mg PO AC-BRKFST 11/03/24 [History] lisinopriL [Zestril] 10 mg PO DAILY 11/03/24 [History] metFORMIN HCL 1,000 mg PO BID 11/03/24 [History] Acetaminophen Tab [Tylenol] 650 mg PO Q6HR PRN tab 11/07/24 [Rx] cefTRIAXone [Rocephin] 2,000 mg IVP Q24HR #42 each 11/07/24 [Rx] metroNIDAZOLE [Flagyl] 500 mg PO TID #126 tab 11/07/24 [Rx] Follow up Appointment(s)/Referral(s): [facility], [NON-STAFF] - As Needed Ravinder Colin MD [Primary Care Provider] - 1-2 days [facility],Infusion [NON-STAFF] - 11/08/24 11:00 am ([facility] office will call you with your appointment time for tomorrow. ) [facility] [NON-STAFF] - 11/13/24 2:00 pm Marvin Moon MD [STAFF PHYSICIAN] - 1 Week (follow up with in the wound clinic) Deysi Thompson MD [STAFF PHYSICIAN] - 11/29/24 1:45 pm (December 18 @ 2pm) Ambulatory/Diagnostic Orders: Basic Metabolic Panel [LAB.AMB] Location: None Selected C Reactive Protein [LAB.AMB] Location: None Selected Complete Blood Count w/diff [LAB.AMB] Location: None Selected Erythrocyte Sedimentation Rate [LAB.AMB] Location: None Selected Patient Instructions/Handouts: Osteomyelitis (DC) Activity/Diet/Wound Care/Special Instructions: Okay for discharge if antibiotics are arranged Activity limited until follow-up Follow-up with primary care provider Follow-up with infectious disease Follow-up with vascular surgery Good continue with medications as prescribed Follow up Appointments Dr. Thompson November 29 @ 1:45pm December 18 @ 2pm Discharge Disposition: HOME WITH HOME HEALTH SERVICES
== END 2024-11-07 15:24 | disposition home health service (06) | DRG 623 ==
LOC: EC 09:18 → 4SSUR 12:12
PROVIDERS: ADMIT Internal Medicine; ATTEND Internal Medicine
PROC: 0JBR0ZZ Excision of Left Foot Subcutaneous Tissue and Fascia, Open Approach (ICD-10-PCS; principal; 2024-11-04)
PROC: 05HB33Z Insertion of Infusion Device into Right Basilic Vein, Percutaneous Approach (ICD-10-PCS; 2024-11-06)
DX: E11.69 Type 2 diabetes mellitus with other specified complication (principal); M86.171 Other acute osteomyelitis, right ankle and foot; B96.89 Other specified bacterial agents as the cause of diseases classified elsewhere; D64.9 Anemia, unspecified; E11.40 Type 2 diabetes mellitus with diabetic neuropathy, unspecified; E11.621 Type 2 diabetes mellitus with foot ulcer; L97.519 Non-pressure chronic ulcer of other part of right foot with unspecified severity; E11.628 Type 2 diabetes mellitus with other skin complications; E11.65 Type 2 diabetes mellitus with hyperglycemia; Z79.4 Long term (current) use of insulin; L03.031 Cellulitis of right toe; Z79.84 Long term (current) use of oral hypoglycemic drugs; Z79.899 Other long term (current) drug therapy
CPT/HCPCS: 36415; 36573; 80048; 80053; 80202; 82009; 82565; 83036; 83605; 83735; 84100; 85025; 86140; 87040; 87070; 87075; 87077; 87186; 87205; 93005; 96365; 96366; 96367; 99285